=== PATIENT | male | born 1930 | race Caucasian/White ===

== ENCOUNTER 2016-06-03 09:17 | Emergency (ER) | payer MEDICARE, BC ==
[~2016-06-03] VITALS: Ht 185.4 cm; Wt 77.1 kg
[~2016-06-03 09:17] MED LIST: AMLO1CAP6 PO; ASCO500C16 PO; ASPI81TA44 PO; CARV6.252 PO; CLOP75TA2 PO; FISH1CAP16 PO; FURO-151 PO; LISI-603 PO; MULT-1119 PO; SIMV80TA5 PO; VITAMIN B-12; ZINC50TA4 PO; [UNRECOGNIZED DRUG - CODE] PO
[2016-06-03] MEDS ORDERED: NEOMY/BACITRA/POLYMYXIN B OINT UD PACKET TP ONE ×2 (09:45→09:58)
--- NOTE | 2016-06-03 09:46 | NUR ---
PT WAS EVALUATED BY DR MCMILLAN. PT's WOUND WAS CLEANED WITH NS. GAUZE DRESSING WAS APPLIED ACCORDING DR MCMILLAN ORDERS. PT WAS D/C TO HOME. D/C INSTRUCTIONS GIVEN TO THE PT.
[2016-06-03 09:52] VITALS: BP 129/81
== END 2016-06-03 09:52 | disposition home or self-care (01) ==
LOC: ER 09:17
DX: Z48.01 Encounter for change or removal of surgical wound dressing (principal); I10 Essential (primary) hypertension; I50.9 Heart failure, unspecified; F10.20 Alcohol dependence, uncomplicated; Z79.82 Long term (current) use of aspirin; Z95.1 Presence of aortocoronary bypass graft
CPT/HCPCS: 99283; A4217; A4663

== ENCOUNTER 2016-08-05 11:07 | Emergency (ER) | payer MEDICARE, BC ==
[~2016-08-05] VITALS: Ht 185.4 cm; Wt 74.8 kg
--- NOTE | 2016-08-05 11:12 | NUR ---
pt and walked into er co left mid foot skin sponataneosly opened and blood gushing out. pt wrapped the area and came to er. while wrapped, bleeding stopped but if removed, blood shoots out. pt also has achronic wound on the left foot which was wrapped by a wound nurse already. did not touch the dressing.
--- NOTE | 2016-08-05 11:53 | NUR ---
Patient discharged to home in stable conditon. Written and verbal after care instructions given. Patient verbalizes understanding of instructions.bleeding stopped. pt walks in steady gait accompanied by .
== END 2016-08-05 11:55 | disposition home or self-care (01) ==
LOC: ER 11:07
DX: Z48.01 Encounter for change or removal of surgical wound dressing (principal); M25.075 Hemarthrosis, left foot; F10.20 Alcohol dependence, uncomplicated; I10 Essential (primary) hypertension; I50.9 Heart failure, unspecified; I25.10 Atherosclerotic heart disease of native coronary artery without angina pectoris; Z79.82 Long term (current) use of aspirin
CPT/HCPCS: A4663

== ENCOUNTER 2016-08-06 22:01 | Inpatient (IN) | payer MEDICARE, BC ==
[~2016-08-06] VITALS: Ht 185.4 cm; Wt 72.2 kg
[~2016-08-06 22:01] MED LIST changes: +CHOL200010 PO; +CLOP75TA15 PO; -CLOP75TA2 PO; -[UNRECOGNIZED DRUG - CODE] PO
[2016-08-06 22:41] LABS: BASOPHILS # (AUTO) 0.2 K/uL (0.0-8.0); BASOPHILS % (AUTO) 1.5 % (0.0-2.0); EOSINOPHILS # (AUTO) 0.2 K/uL (0.0-0.7); EOSINOPHILS % (AUTO) 2.1 % (0.0-7.0); HEMOGLOBIN 7.1 G/DL (14.0-18.0); LYMPHOCYTES # (AUTO) 1.6 K/UL (0.8-4.8); MEAN CORPUSCULAR HEMOGLOBIN 29.2 UUG (27.0-31.0); MEAN CORPUSCULAR HGB CONC 33 g/dL (32.0-37.0); MEAN CORPUSCULAR VOLUME 87.6 FL (82.0-92.0); MONOCYTES % (AUTO) 9.1 % (0.0-11.0); NEUTROPHILS # (AUTO) 8.3 K/UL (1.8-8.9); NEUTROPHILS % (AUTO) 73.3 % (38.5-71.5); PLATELET COUNT (AUTO) 74 K/UL (150-450); WHITE BLOOD COUNT (AUTO) 11.3 K/UL (4.0-11.2)
[2016-08-06 22:43] LABS: HEMATOCRIT 21.4 % (40-50); RED BLOOD CELL COUNT(AUTO) 2.44 MIL/UL (4.7-6.1)
[2016-08-06] MEDS ORDERED: HYDROMORPHONE 1 MG/1 ML DISP.SYRIN IV ONE (22:45)
[2016-08-06] MEDS ORDERED: ONDANSETRON IV *ER 4 MG/2 ML VIAL IV ONE (22:45)
[2016-08-06] MEDS ORDERED: HYDROMORPHONE 1 MG/1 ML DISP.SYRIN ONE (22:48)
[2016-08-06] MEDS ORDERED: ONDANSETRON 4 MG/2 ML VIAL ONE (22:48)
[2016-08-06 23:06] LABS: ALANINE AMINOTRANSFERASE 15 U/L (16-63); ALKALINE PHOSPHATASE 76 U/L (50-136); ASPARTATE AMINOTRANSFERASE 15 U/L (15-37); BILIRUBIN,DIRECT 0.2 mg/dL (0.0-0.2); BILIRUBIN,TOTAL 0.6 mg/dL (0.2-1.0); CARBON DIOXIDE 25 mmol/L (21-32); CHLORIDE 106 mmol/L (98-107); CREATININE 2.6 mg/dL (0.6-1.3); GLUCOSE 172 mg/dL (74-106); LIPASE 161 U/L (73-393); POTASSIUM 4.9 mmol/L (3.5-5.1); TOTAL PROTEIN, SERUM 6.6 g/dL (6.4-8.2); UREA NITROGEN, BLOOD 79 mg/dL (7-18)
[2016-08-06] MEDS ORDERED: IV NORMAL SALINE 1000 ML BAG IV ONE (23:45)
[2016-08-07] VITALS (14 sets, daily range): BP systolic 117–161; BP diastolic 46–74
[2016-08-07 00:33] LABS: LYMPHOCYTES % (MANUAL) 21 % (20-40); MONOCYTES % (MANUAL) 6 % (2-10); NEUTROPHILS % (MANUAL) 73 % (42-75)
--- NOTE | 2016-08-07 01:30 | NUR ---
RECEIVED ADMISSION REPORT FROM ELKE HOLLIS
--- NOTE | 2016-08-07 02:00 | NUR ---
ADMITTED PATIENT FROM ER VIA [facility]. AAO X 4, VERY COHERENT AND TALKATIVE. ROUTINE ADMISSION CARE DONE. PLAN OF CARE INITIATED.
--- NOTE | 2016-08-07 02:11 | NUR ---
Pt. admitted to TELE, under care of Dr. Celeste Belongs List completed
--- NOTE | 2016-08-07 03:00 | NUR ---
BLOOD TRANSFUSION INITIATED ORDERED. VS TAKEN AND RECORDED.
--- NOTE | 2016-08-07 03:15 | NUR ---
NO S/S OF ADVERSE REACTION NOTED FROM BLOOD TRANSFUSION. CONTINUE TO MONITOR.
--- NOTE | 2016-08-07 05:15 | NUR ---
First unit PRBC transfusion completed without s/s of adverse reaction noted. Pt tolerated procedure well.
--- NOTE | 2016-08-07 05:31 | NUR ---
2nd unit PRBC started. VS taken and recorded. Will monitor.
--- NOTE | 2016-08-07 05:58 | NUR ---
Last unit PRBC transfusing. Patient tolerated procedure. No s/s of adverse reaction noted. All needs attended and met. Safety measures and fall precaution maintained. No significant event reported all night. Continue care as planned.
[2016-08-07 07:24] LABS: CARBON DIOXIDE 20 mmol/L (21-32); CREATININE 2.2 mg/dL (0.6-1.3); GLUCOSE 121 mg/dL (74-106); UREA NITROGEN, BLOOD 74 mg/dL (7-18)
[2016-08-07 07:28] LABS: CHLORIDE 111 mmol/L (98-107)
--- NOTE | 2016-08-07 07:30 | NUR ---
AWAKE ALERT COOPERATE WELL NO SOB OR PAIN CONTINUE PRBC SELINA WELL NO REACTION VS TAKEN STABLE RESTING WITH CALL COSTA IN REACH
[2016-08-07 07:37] LABS: POTASSIUM 5.6 mmol/L (3.5-5.1)
[2016-08-07] MEDS: IV D5/ 0.9% NACL 1,000 ML IV PRN ×2 (08:07→18:34)
--- NOTE | 2016-08-07 08:10 | NUR ---
SECOND UNIT OF PRBC COMPLETE VS STABLE EAT BREAKFAST SMALL AMT STATE DOES NOT HUNGRY CLOSED OBSERVATION
--- NOTE | 2016-08-07 09:00 | NUR ---
DR LION WAS REMIND ON HOME MEDICINE NEED TO REVIEW AND ORDER , WAS AWARE AND PHABRO WAS INFORM BECAUSE OF NO RECORD FROM ER AND WILL ASK FAMILY TODAY
[2016-08-07 09:17] LABS: BASOPHILS % (AUTO) 0.1 % (0.0-2.0); EOSINOPHILS # (AUTO) 0.4 K/uL (0.0-0.7); EOSINOPHILS % (AUTO) 1.6 % (0.0-7.0); LYMPHOCYTES # (AUTO) 1.4 K/UL (0.8-4.8); LYMPHOCYTES % (AUTO) 5.3 % (20.5-51.5); MEAN CORPUSCULAR HEMOGLOBIN 28.3 UUG (27.0-31.0); MEAN CORPUSCULAR HGB CONC 32 g/dL (32.0-37.0); MEAN CORPUSCULAR VOLUME 88.1 FL (82.0-92.0); MONOCYTES # (AUTO) 2.2 K/UL (0.1-1.30); MONOCYTES % (AUTO) 8.4 % (0.0-11.0); NEUTROPHILS # (AUTO) 21.9 K/UL (1.8-8.9); NEUTROPHILS % (AUTO) 84.6 % (38.5-71.5)
[2016-08-07 09:20] LABS: RED BLOOD CELL COUNT(AUTO) 2.91 MIL/UL (4.7-6.1); WHITE BLOOD COUNT (AUTO) 25.9 K/UL (4.0-11.2)
[2016-08-07 09:21] LABS: HEMATOCRIT 25.7 % (40-50); HEMOGLOBIN 8.3 G/DL (14.0-18.0); PLATELET COUNT (AUTO) 52 K/UL (150-450)
[2016-08-07 09:36] LABS: *BILIRUBIN,URIN NEGATIVE (NEGATIVE); *BLOOD, URINE Trace-lysed (NEGATIVE); *CLARITY,URINE SLIGHTLY CLOUDY (CLEAR); *COLOR,URINE LIGHT YELLOW (YELLOW); *KETONES,URINE NEGATIVE (NEGATIVE); *PROTEIN,URINE TRACE (NEGATIVE); *UROBILINOGEN,URINE 0.2 E.U./dl (NORMAL); LEUKOCYTE ESTERASE ,URINE NEGATIVE (NEGATIVE); NITRITE, URINE NEGATIVE (NEGATIVE); UGLUCOSE NEGATIVE (NEGATIVE)
[2016-08-07 09:45] LABS: LYMPHOCYTES % (MANUAL) 6 % (20-40); MONOCYTES % (MANUAL) 6 % (2-10); NEUTROPHILS % (MANUAL) 88 % (42-75)
[2016-08-07 09:46] LABS: *CREATININE,URINE 40.2 mg/dL (30-125); *URINE TOTAL PROTEIN RANDOM 15.9 mg/dL (<150/24HR)
[2016-08-07 09:51] LABS: BACTERIA,URINE FEW /HPF (NONE SEEN); RBC,URINE NONE SEEN /HPF (0-3); SQUAMOUS EPITHELIAL CELL,UR FEW /HPF (NONE SEEN); WBC,URINE 0-3 /HPF (0-3)
--- NOTE | 2016-08-07 10:00 | NUR ---
DR LION SEE PATIENT AND LAB RESULT TODAY AND NEW ORDER IN CHART BLOOD CULTURE AND URINE C$S,UA SENT STAT ORDER
--- NOTE | 2016-08-07 11:00 | NUR ---
US OF KIDNEY DONE TODAY SELINA PROCEDURE WELL NO SOB OR PAIN VS STABLE NO FEVER
--- NOTE | 2016-08-07 11:00 | NUR ---
ASSIST TO BR[facility] VOIDING WELL ,STILL VERY WEAK ON FALL /ASPIRATION PRECAUTION BED ALARM ON AND CALL COSTA IN REACH
[2016-08-07 12:26] LABS: CARBON DIOXIDE 24 mmol/L (21-32); CHLORIDE 112 mmol/L (98-107); CREATININE 2.1 mg/dL (0.6-1.3); GLUCOSE 124 mg/dL (74-106); POTASSIUM 5.4 mmol/L (3.5-5.1); UREA NITROGEN, BLOOD 67 mg/dL (7-18)
--- NOTE | 2016-08-07 13:30 | NUR ---
EAT LUNCH SMALL AMT PO FLD ENC SELINA WELL CLOSE OBSERVATION
--- NOTE | 2016-08-07 16:00 | NUR ---
TEMP WAS 99.7 AND BP HIGHER 150/49 PATIENT WAS ANXIUOS AND FORGETFUL AT THIS TIME STATE WANT TO GO TO [facility] ASSIST TO USE BEDPAN AND HE HAVE A LARGE BM STOOL SENT TO LAB TODAY
--- NOTE | 2016-08-07 16:30 | NUR ---
DR LION WAS CALL REGARDING NEED REVIEW HOME MEDICINE AND LAB RESULT WBC WAS 25.9 ,K+5.4 REPEAT LAB TODAY AND MESSAGE LEFT
--- NOTE | 2016-08-07 18:00 | NUR ---
DR OLMOS WAS CALL REGARDING DR LION DOES NOT RETURN CALL PATIENT TEMP AND LAB RESULT OF WBC AND K+ BUN/CREAT INFORM AND NEW ORDER IN CHART STATE HOME MEDICINE LET DR LION REVIEW TOMORROW EXCEPT COREG OK TO CONTINUE BID
--- NOTE | 2016-08-07 18:00 | NUR ---
DR GIVENS WAS HERE SEE PATIENT AND NEW ORDER FOR MEDICINE IN CHART
--- NOTE | 2016-08-07 18:45 | NUR ---
DR SIMON SEE PATIENT AND WOUND CARE DSG CHANGE BY AND NEW ORDER FOR VANCOMYCIN IN CHART WOUND CULTURE SENT TO LAB THIS PM
--- NOTE | 2016-08-07 19:30 | NUR ---
patient got confused,restless,attempt getting out of bed,transfer patient to room 210 for closely monitor.
[2016-08-07] MEDS ORDERED: PIPERACILLIN/TAZOBACTAM/D5W 3.375 G in PREMIXED 1 EACH IV SCH (19:45)
[2016-08-07] MEDS ORDERED: VANCOMYCIN IV 1 G in PREMIXED 0 EACH IV SCH (20:00)
[2016-08-07] MEDS: PIPERACILLIN/TAZOBACTAM/D5W 2.25 G in PREMIXED 1 EACH IV SCH (20:47)
[2016-08-07] MEDS: LORAZEPAM 0.5 MG TABLET PO PRN (21:24)
[2016-08-07] MEDS: ATORVASTATIN 40 MG TABLET PO SCH (21:25)
--- NOTE | 2016-08-07 21:25 | NUR ---
patient try to get out of bed,very confused,restless Ativan 0.5 mg po admin for agitation,continue closely monitor.
[2016-08-07] MEDS ORDERED: FUROSEMIDE 40 MG/4 ML VIAL IV ONE (21:30)
--- NOTE | 2016-08-07 21:30 | NUR ---
patient wheezes,sob noted,increase o2 to 5l/n via nasal cannula, Dr. Rodriguez was notified ,Lasix 40 mg iv admin.
[2016-08-07] MEDS ORDERED: FUROSEMIDE 40 MG/4 ML VIAL ONE (21:32)
[2016-08-07 21:41] LABS: *OCCULT BLOOD STOOL NEGATIVE (NEGATIVE)
[2016-08-07] MEDS ORDERED: CARVEDILOL 6.25 MG TABLET PO SCH (22:15)
[2016-08-07] MEDS ORDERED: CARVEDILOL 6.25 MG TABLET ONE (22:24)
--- NOTE | 2016-08-07 22:30 | NUR ---
patient o2 saturate down to 88% on o2 6 l/m via nasal cannula, increase o2 to 15 l/m via NRB mask o2 sat up to 99%-100%
[2016-08-07] MEDS ORDERED: VANCOMYCIN IV 200 ML ONE (22:52)
--- NOTE | 2016-08-07 23:30 | NUR ---
RECEIVED PT. FROM RM 209 VIA BED, DUE SEVERE RESTLESSNESS. CHECKED TEMP-103.8 RECTALLY, TYLENOL 650MG GIVEN CRUSHED W/ APPLE. COOLING MEASURES APPLIED & COOL BATH GIVEN. IVF D5NS @ 85CC/HR ON RFA, IVPB MED INFUSING THIS TIME. REPOSITIONED ON HIS SIDE W/ HOB ELEVATED. ON O2 OF 100% NRM W/ O2 SAT OF 100%. INSERTED RESENDIZ #16, DONE ASEPTICALLY W/ PINKISH CLEAR URINE. SENT URINE SPEC. TO LAB. FOR C&S. WATCHED PT CLOSELY.
--- NOTE | 2016-08-07 23:40 | NUR ---
bladder scan done shown 225 ml of urine ,bp 136/72,Dr. Rodriguez was notified ,ok to placed sparrow catheter and move patient to CCU for higher level of care.CXR stat ordered.
[2016-08-07] MEDS: ACETAMINOPHEN 325 MG TABLET PO PRN (23:58)
[2016-08-08] VITALS (58 sets, daily range): BP systolic 77–153; BP diastolic 33–75
[2016-08-08 00:25] LABS: HEMATOCRIT 27.5 % (40-50)
[2016-08-08] MEDS: PIPERACILLIN/TAZOBACTAM/D5W 2.25 G in PREMIXED 1 EACH IV SCH ×3 (01:41→14:49)
--- NOTE | 2016-08-08 02:00 | NUR ---
NOTIFIED DR URIAS FOR LOW BP-80/43 W/ ORDERS. ALSO WAS UPDATED OF ELEVATED TEMP.
[2016-08-08] MEDS ORDERED: NOREPINEPHRINE BITARTRATE 8 MG in IV DEXTROSE 5% 500 ML IV PRN (02:15)
--- NOTE | 2016-08-08 02:27 | NUR ---
STARTED ON LEVOPHED DRIP @ 5MCQ/MIN ON RFA. STARTED #2 IV SITE ON L HAND W/ #22 ANGIO. FOR MAIN IVF.
[2016-08-08] MEDS ORDERED: NOREPINEPHRINE BITARTRATE 4 MG/4 ML VIAL IV ONE (02:28)
--- NOTE | 2016-08-08 04:00 | NUR ---
AM CARE DONE. ORAL CARE DONE. REPOSITIONED W/ HOB ELEVATED.
[2016-08-08 05:27] LABS: BASOPHILS % (AUTO) 0.2 % (0.0-2.0); EOSINOPHILS # (AUTO) 0.4 K/uL (0.0-0.7); EOSINOPHILS % (AUTO) 1.5 % (0.0-7.0); HEMATOCRIT 24.7 % (40-50); HEMOGLOBIN 8.2 G/DL (14.0-18.0); LYMPHOCYTES # (AUTO) 1.5 K/UL (0.8-4.8); LYMPHOCYTES % (AUTO) 6.2 % (20.5-51.5); MEAN CORPUSCULAR HEMOGLOBIN 28.7 UUG (27.0-31.0); MEAN CORPUSCULAR HGB CONC 33 g/dL (32.0-37.0); MEAN CORPUSCULAR VOLUME 86.9 FL (82.0-92.0); MONOCYTES # (AUTO) 2.8 K/UL (0.1-1.30); MONOCYTES % (AUTO) 11.7 % (0.0-11.0); NEUTROPHILS % (AUTO) 80.4 % (38.5-71.5); PLATELET COUNT (AUTO) 55 K/UL (150-450); RED BLOOD CELL COUNT(AUTO) 2.85 MIL/UL (4.7-6.1)
[2016-08-08] MEDS: ACETAMINOPHEN 325 MG TABLET PO PRN (05:31)
[2016-08-08 05:40] LABS: WHITE BLOOD COUNT (AUTO) 23.7 K/UL (4.0-11.2)
[2016-08-08 05:42] LABS: ALANINE AMINOTRANSFERASE 20 U/L (16-63); ALKALINE PHOSPHATASE 63 U/L (50-136); ASPARTATE AMINOTRANSFERASE 34 U/L (15-37); BILIRUBIN,TOTAL 0.9 mg/dL (0.2-1.0); CARBON DIOXIDE 25 mmol/L (21-32); CHLORIDE 109 mmol/L (98-107); CREATININE 2.1 mg/dL (0.6-1.3); GLUCOSE 174 mg/dL (74-106); MAGNESIUM 2.2 mg/dL (1.8-2.4); PHOSPHOROUS 4.6 mg/dL (2.5-4.9); POTASSIUM 4.7 mmol/L (3.5-5.1); TOTAL PROTEIN, SERUM 6.4 g/dL (6.4-8.2); UREA NITROGEN, BLOOD 57 mg/dL (7-18)
[2016-08-08 05:43] LABS: BAND % (MANUAL) 2 % (0-10); EOSINOPHILS % (MANUAL) 1 % (0-8); LYMPHOCYTES % (MANUAL) 15 % (20-40); MONOCYTES % (MANUAL) 7 % (2-10); NEUTROPHILS % (MANUAL) 75 % (42-75)
--- NOTE | 2016-08-08 05:45 | NUR ---
LOKESH HAHN CALLED TO OBTAIN CONSENT FO PICC LINE INSERTION.
[2016-08-08 05:57] LABS: CREATINE KINASE, TOTAL 434 U/L (39-308)
--- NOTE | 2016-08-08 06:00 | NUR ---
INCREASED LEVOPHED DRIP TO 12MCQ/MIN, BP-82/38. PT. IS QUITE THIS TIME. TRIED O2 4LNC , PT DESATURATED , PLACED BACK TO 100% NRM.
--- NOTE | 2016-08-08 07:30 | NUR ---
RECEIVED PT TIN NAD VSS ON VASOPRESSOR SUPPORT. PT IS A/OX1; CONFUSED AND LETHARGIC. PT ON CARDIAC MONITORING SHOWING BRADYCARDIA WITH OCCASIONAL PVC. PT HAS NRB MASK AT 15LPM; SPO2 IS 100%. PT HAS A LEFT HAND AND RT FOREARM IV INFUSING FLUIDS AT THIS TIME. PT HAS A FC DRAINING CLEAR KYLE URINE. SCD ON RT LEG ONLY PER LLE WOUND AND DRESSING. SEE NURSING FLOWSHEET FOR FURTHER DETAILS. WILL ORDER A KCI MATTRESS. PT DENIES PAIN AT THIS TIME
[2016-08-08] MEDS ORDERED: CARVEDILOL 6.25 MG TABLET PO SCH (08:00)
--- NOTE | 2016-08-08 08:45 | NUR ---
TURNED OFF LEVOPHED GTT; VSS
--- NOTE | 2016-08-08 08:58 | NUR ---
PLACED PT ON NC AT 5LPM; PT WAS ON 10 LPM SM. WITH SPO2 OF 99%; DENIES SOB
[2016-08-08] MEDS: FLUCONAZOLE 200 MG TABLET PO SCH (09:00)
--- NOTE | 2016-08-08 09:15 | NUR ---
PT STARTED ON 5MCG/KG/MIN LEVOPHED FOR SBP<90.
--- NOTE | 2016-08-08 10:48 | NUR ---
COLLAR SETTER OVERLOCK LEFT CALF WOUND TREATMENT ORDERS CLARIFIED WITH DR ULLOA AND DISCUSSED WITH CCU RN.
--- NOTE | 2016-08-08 10:56 | NUR ---
PHARMACY CLINICAL NOTE: Subjective: 85 yo male with dx of sepsis of unknown origin. Currently on Zosyn. wanted to add vancomycin as well. Objectives: BUN/SCR 57/2.1, WBC 23.7, TMAX = 101.4, CRCL 26.38, DOSING WT 157 LBS Assessment /plan: Patient received Vancomycin 1 gm @ 2300 on 08/07/2016. Will continue vancomycin @ 1250 mg IVPB q36h,first dose today @ 1200, estimated peak of 40.6 and trough 16.34 will order a trough prior to 4th dose and adjust the dose if necessary.
[2016-08-08] MEDS ORDERED: VANCOMYCIN IV 1,250 MG in IV DEXTROSE 5% 500 ML IV SCH (12:00)
[2016-08-08] MEDS ORDERED: IV NS 1000 ML 1,000 ML IV ONE (12:15)
[2016-08-08 13:06] LABS: BASOPHILS % (AUTO) 0.2 % (0.0-2.0); EOSINOPHILS # (AUTO) 0.1 K/uL (0.0-0.7); EOSINOPHILS % (AUTO) 0.5 % (0.0-7.0); LYMPHOCYTES # (AUTO) 1.4 K/UL (0.8-4.8); LYMPHOCYTES % (AUTO) 8.7 % (20.5-51.5); MEAN CORPUSCULAR HEMOGLOBIN 28.5 UUG (27.0-31.0); MEAN CORPUSCULAR HGB CONC 33 g/dL (32.0-37.0); MEAN CORPUSCULAR VOLUME 87.6 FL (82.0-92.0); MONOCYTES # (AUTO) 2.1 K/UL (0.1-1.30); NEUTROPHILS # (AUTO) 12.2 K/UL (1.8-8.9); NEUTROPHILS % (AUTO) 77.6 % (38.5-71.5); RED BLOOD CELL COUNT(AUTO) 2.59 MIL/UL (4.7-6.1); WHITE BLOOD COUNT (AUTO) 15.8 K/UL (4.0-11.2)
[2016-08-08] MEDS ORDERED: ASCO500C16 PO (13:07)
[2016-08-08] MEDS ORDERED: AMLO1CAP6 PO (13:07)
[2016-08-08] MEDS ORDERED: ASPI81TA44 PO (13:07)
[2016-08-08 13:08] LABS: IRON, SERUM 13 ug/dL (50-175)
[2016-08-08] MEDS ORDERED: CHOL200010 PO (13:12)
[2016-08-08] MEDS ORDERED: CARV6.252 PO (13:12)
[2016-08-08] MEDS ORDERED: SIMV80TA5 PO (13:12)
[2016-08-08] MEDS ORDERED: CLOP75TA15 PO (13:12)
[2016-08-08] MEDS ORDERED: LISI-603 PO (13:12)
[2016-08-08] MEDS ORDERED: FISH1CAP16 PO (13:12)
[2016-08-08] MEDS ORDERED: MULT-1119 PO (13:12)
[2016-08-08] MEDS ORDERED: FURO-151 PO (13:18)
[2016-08-08 13:39] LABS: FERRITIN 730 ng/mL (26-388)
--- NOTE | 2016-08-08 13:41 | NUR ---
WOUND CARE CONSULT: PT NOT SEEN YET FOR SKIN ASSESSMENT DUE TO PT HAVING PROCEDURE AT THIS TIME. DISCUSSED SKIN PROTECTION WITH NURSING STAFF. PT FOLLOWED BY DR ULLOA FOR LOWER EXTREMITY WOUND. MD IN AGREEMENT WITH PLAN OF CARE.
[2016-08-08 14:04] LABS: PLATELET COUNT (AUTO) 43 K/UL (150-450)
[2016-08-08 14:07] LABS: HEMATOCRIT 22.7 % (40-50); HEMOGLOBIN 7.4 G/DL (14.0-18.0)
[2016-08-08] MEDS ORDERED: CYAN10009 PO (14:09)
[2016-08-08] MEDS ORDERED: IV NORMAL SALINE 500 ML BAG IV ONE (15:00)
[2016-08-08] MEDS ORDERED: NS IV ONE (15:15)
--- NOTE | 2016-08-08 15:45 | NUR ---
COMPLETED SEPSIS PROTOCOL INFUSION OF 2400ML NS; PT TOLERATED WELL. BEGINNING INFUSION OF 1 UNIT PRBC'S
--- NOTE | 2016-08-08 18:00 | NUR ---
Pt tolerated 1unit prbc transfusion well; no reactions noted
[2016-08-08 18:22] LABS: BAND % (MANUAL) 2 % (0-10); LYMPHOCYTES % (MANUAL) 8 % (20-40); MONOCYTES % (MANUAL) 15 % (2-10); NEUTROPHILS % (MANUAL) 75 % (42-75)
[2016-08-08] MEDS ORDERED: MEROPENEM 500 MG in IV NORMAL SALINE 50 ML IV SCH (19:00)
[2016-08-08 19:24] LABS: BASOPHILS % (AUTO) 0.3 % (0.0-2.0); EOSINOPHILS # (AUTO) 0.3 K/uL (0.0-0.7); EOSINOPHILS % (AUTO) 2.1 % (0.0-7.0); HEMATOCRIT 24.3 % (40-50); LYMPHOCYTES # (AUTO) 1.5 K/UL (0.8-4.8); LYMPHOCYTES % (AUTO) 9.3 % (20.5-51.5); MEAN CORPUSCULAR HEMOGLOBIN 27.9 UUG (27.0-31.0); MEAN CORPUSCULAR HGB CONC 33 g/dL (32.0-37.0); MEAN CORPUSCULAR VOLUME 84.7 FL (82.0-92.0); MONOCYTES # (AUTO) 2.2 K/UL (0.1-1.30); MONOCYTES % (AUTO) 13.6 % (0.0-11.0); NEUTROPHILS # (AUTO) 12.1 K/UL (1.8-8.9); NEUTROPHILS % (AUTO) 74.7 % (38.5-71.5); RED BLOOD CELL COUNT(AUTO) 2.86 MIL/UL (4.7-6.1); WHITE BLOOD COUNT (AUTO) 16.1 K/UL (4.0-11.2)
[2016-08-08 19:28] LABS: PLATELET COUNT (AUTO) 46 K/UL (150-450)
[2016-08-08] MEDS ORDERED: PIPERACILLIN/TAZOBACTAM/D5W 2.25 G in PREMIXED 1 EACH IV SCH (20:00)
--- NOTE | 2016-08-08 20:00 | NUR ---
Pt confused and restless. States has a wedding to go to. Frequent reality-orientation done. Safety and fall precautions observed at all times. Remains off Levophed and is closely monitored. Resp. easy and regular. O2 titrating. PICC line intact RUE, kept secure with kerlix wrap. Frequently instructed to remain in bed. Please see CCU flowsheet for full assessment and clinical data.
[2016-08-08] MEDS ORDERED: IV NORMAL SALINE 250 ML BAG IV SCH (20:15)
[2016-08-08] MEDS ORDERED: IV NORMAL SALINE 250 ML IV PRN ×2 (20:30)
[2016-08-08] MEDS: ATORVASTATIN 40 MG TABLET PO SCH (20:39)
[2016-08-08] MEDS: LORAZEPAM 0.5 MG TABLET PO PRN (20:39)
[2016-08-08] MEDS: Z GUARD REMEDY PASTE 57 GM TUBE TOP PRN (20:41)
[2016-08-08] MEDS ORDERED: SIMVASTATIN 40 MG TABLET PO SCH (21:00)
[2016-08-09] VITALS (9 sets, daily range): BP systolic 107–156; BP diastolic 62–81
--- NOTE | 2016-08-09 01:15 | NUR ---
Pt getting extremely hard to manage to keep safe. Very restless/agitated, trying to get out of bed numerous times, pulling med equipments. Appears SOB with exertion, pt very strong. Dr. Ritchie notified and received order for IV PRN Ativan and bilateral mittens, carried out. Close monitoring continues.
[2016-08-09] MEDS ORDERED: LORAZEPAM 2 MG/1 ML VIAL ONE ×2 (01:17→06:56)
[2016-08-09] MEDS: LORAZEPAM 2 MG/1 ML VIAL IV PRN ×2 (01:19→06:48)
--- NOTE | 2016-08-09 02:00 | NUR ---
Routine weekly photo not taken on left leg wound due to presence of pressure dressing. Per MD, dressing change is daily and only he can remove steri-strips. Wound care/dressing was done by day shift and will endorse Tx/photo. Wound has tendency to bleed.
[2016-08-09 05:14] LABS: EOSINOPHILS # (AUTO) 0.3 K/uL (0.0-0.7); EOSINOPHILS % (AUTO) 1.6 % (0.0-7.0); HEMATOCRIT 26.4 % (40-50); HEMOGLOBIN 8.7 G/DL (14.0-18.0); LYMPHOCYTES # (AUTO) 1.2 K/UL (0.8-4.8); LYMPHOCYTES % (AUTO) 5.7 % (20.5-51.5); MEAN CORPUSCULAR HEMOGLOBIN 28.4 UUG (27.0-31.0); MEAN CORPUSCULAR HGB CONC 33 g/dL (32.0-37.0); MEAN CORPUSCULAR VOLUME 86.2 FL (82.0-92.0); MONOCYTES # (AUTO) 2.6 K/UL (0.1-1.30); MONOCYTES % (AUTO) 11.8 % (0.0-11.0); NEUTROPHILS # (AUTO) 17.6 K/UL (1.8-8.9); NEUTROPHILS % (AUTO) 80.9 % (38.5-71.5); RED BLOOD CELL COUNT(AUTO) 3.06 MIL/UL (4.7-6.1); WHITE BLOOD COUNT (AUTO) 21.7 K/UL (4.0-11.2)
[2016-08-09 05:26] LABS: ALANINE AMINOTRANSFERASE 21 U/L (16-63); ALKALINE PHOSPHATASE 58 U/L (50-136); ASPARTATE AMINOTRANSFERASE 41 U/L (15-37); BILIRUBIN,TOTAL 1.1 mg/dL (0.2-1.0); CARBON DIOXIDE 25 mmol/L (21-32); CHLORIDE 112 mmol/L (98-107); CREATININE 1.6 mg/dL (0.6-1.3); GLUCOSE 123 mg/dL (74-106); MAGNESIUM 1.9 mg/dL (1.8-2.4); PHOSPHOROUS 3.8 mg/dL (2.5-4.9); POTASSIUM 4.4 mmol/L (3.5-5.1); TOTAL PROTEIN, SERUM 6.4 g/dL (6.4-8.2); UREA NITROGEN, BLOOD 41 mg/dL (7-18)
[2016-08-09 05:34] LABS: PLATELET COUNT (AUTO) 44 K/UL (150-450)
[2016-08-09 05:39] LABS: BAND % (MANUAL) 2 % (0-10); EOSINOPHILS % (MANUAL) 3 % (0-8); LYMPHOCYTES % (MANUAL) 9 % (20-40); MONOCYTES % (MANUAL) 14 % (2-10); NEUTROPHILS % (MANUAL) 72 % (42-75)
[2016-08-09] MEDS: Z GUARD REMEDY PASTE 57 GM TUBE TOP PRN (06:30)
--- NOTE | 2016-08-09 06:50 | NUR ---
Med override 2 doses IV Ativan this shift. See EMar.
[2016-08-09] MEDS: ASCORBIC ACID 500 MG TABLET PO SCH (08:36)
[2016-08-09] MEDS: FLUCONAZOLE 200 MG TABLET PO SCH (08:36)
[2016-08-09] MEDS: CYANOCOBALAMIN 1,000 MCG TABLET PO SCH (08:36)
[2016-08-09] MEDS: MULTIVITAMINS,THERAPEUTIC TABLET PO SCH (08:36)
[2016-08-09] MEDS: OMEGA-3 FATTY ACIDS/FISH OIL CAPSULE PO SCH (08:36)
[2016-08-09] MEDS: CHOLECALCIFEROL 1,000 UNIT TABLET PO SCH (08:37)
[2016-08-09] MEDS ORDERED: MEROPENEM 500 MG in IV NORMAL SALINE 50 ML IV SCH (09:00)
--- NOTE | 2016-08-09 11:20 | NUR ---
SBAR REPORTED TO ADELINE. PENDING PATIENT TRANSFER TO TELE, WAITING FOR 1:1 SITTER.
[2016-08-09 12:10] LABS: A/G RATIO 1.3 (0.7-1.7); ALBUMIN 3.3 g/dL (2.9-4.4); ALPHA-1-GLOBULIN 0.3 g/dL (0.0-0.4); ALPHA-2-GLOBULIN 0.7 g/dL (0.4-1.0); BETA GLOBULIN 0.7 g/dL (0.7-1.3); GAMMA GLOBULIN 0.9 g/dL (0.4-1.8); GLOBULIN, TOTAL 2.6 g/dL (2.2-3.9); M-SPIKE Not Observed g/dL (Not Observed)
--- NOTE | 2016-08-09 15:00 | NUR ---
PLACED ORDER FOR SWALLOW EVAL. PATIENT IS SITTING UP HIGH PATIENT IS UNABLE TO SIP WATER. PATIENT IS COUGHING WITH SIPPS OF WATER. CRUSHED MEDS TO SWALLOW.
--- NOTE | 2016-08-09 15:30 | NUR ---
BED AVAILABLE TO ROOM 226.
--- NOTE | 2016-08-09 15:41 | NUR ---
PHARMACY CLINICAL NOTE - Vancomycin pharmacy to dose Subjective: 85 yo male with dx of sepsis of unknown origin. Currently on Zosyn. MD wanted to add vancomycin as well. Objectives: BUN/SCR 41/1.6, WBC 21.7, TMAX = 98.6, DOSING WT 157 LBS Assessment /plan: Since renal function has improved, rescheduled vanco 1250mg from q36hr to q30hr, with second dose of regimen due today at 1800. Expected estimated trough to be around 15.32. Will order trough before 4th scheduled dose (not ordered yet) and adjust as accordingly. Will continue to monitor renal function and adjust regimen as needed. Will continue to monitor
[2016-08-09] MEDS ORDERED: hydrALAZINE HCL 25 MG TABLET PO PRN (16:15)
--- NOTE | 2016-08-09 16:17 | NUR ---
PATIENT TRANSFERRED AT THIS TIME TO ROOM 226 WITH 1:1 SITTER.
[2016-08-09] MEDS ORDERED: VANCOMYCIN IV 1,250 MG in IV DEXTROSE 5% 500 ML IV SCH (18:00)
[2016-08-09] MEDS: RIFAMPIN 300 MG CAPSULE PO SCH (19:03)
--- NOTE | 2016-08-09 19:30 | NUR ---
PATIENT IN BED, ON CONTACT ISOLATION FOR MRSA OF THE BLOOD, CONT ON 1;1 SITTER FOR SAFETY, RESENDIZ CATH PATENT, DRAINING WITH YELLOW KYLE COLOR URINE IN MODERATE AMOUNT, NO COMPLAIN OF PAIN, NO SOB NO CHEST PAIN, ON OXYGEN 4LNC FOR SOB, ON AIR MATTRESS FOR PREVENTION OF PRESSURE ULCERS. NO S/S OF DISTRESS.
[2016-08-09] MEDS: ATORVASTATIN 40 MG TABLET PO SCH (20:39)
[2016-08-09] MEDS: LACTOBACILLUS RHAMNOSUS GG 1 EACH CAPSULE PO SCH (20:39)
[2016-08-09] MEDS: ZOLPIDEM 5 MG TABLET PO PRN (21:54)
[2016-08-09] MEDS: MUPIROCIN 2% OINT 22 GM TUBE NS SCH (21:58)
[2016-08-09] MEDS: LORAZEPAM 0.5 MG TABLET PO PRN (23:04)
[2016-08-10 03:16] VITALS: BP 142/60
[2016-08-10 03:18] VITALS: BP 138/61
[2016-08-10 03:30] VITALS: BP 145/61
--- NOTE | 2016-08-10 06:33 | NUR ---
PATIENT AWAKE, VERBALLY RESPONSIVE NO SOB NO CHEST PAIN, RYTHM SINUS RYTHM WITH PVC WITH BUNDLE BLOCK, KEPT CLEAN DRY AND COMFORTABLE, CONT ON 1;1 SITTER, REMAIN ON CONTACT ISOLATION.
[2016-08-10 07:08] LABS: BASOPHILS % (AUTO) 0.1 % (0.0-2.0); EOSINOPHILS # (AUTO) 0.5 K/uL (0.0-0.7); EOSINOPHILS % (AUTO) 3.4 % (0.0-7.0); LYMPHOCYTES # (AUTO) 1.3 K/UL (0.8-4.8); LYMPHOCYTES % (AUTO) 9.8 % (20.5-51.5); MEAN CORPUSCULAR HGB CONC 34 g/dL (32.0-37.0); MEAN CORPUSCULAR VOLUME 86.7 FL (82.0-92.0); MONOCYTES # (AUTO) 1.9 K/UL (0.1-1.30); MONOCYTES % (AUTO) 13.6 % (0.0-11.0); NEUTROPHILS % (AUTO) 73.1 % (38.5-71.5); WHITE BLOOD COUNT (AUTO) 13.7 K/UL (4.0-11.2)
--- NOTE | 2016-08-10 07:10 | NUR ---
PATIENT RECEIVED IN ROOM RESTING WITH EYES CLOSED IN NO ACUTE DISTRESS. H.R. 107 ON PEDIATRIC PHYSIATRIST. PATIENT ON C-PAP AT THIS TIME. AT BEDSIDE. Addendum: 08/10/16 at 0801 by ADELINE PABON RN WRONG ENTRY PATIENT JODEE RECEIVED IN ROOM ALERT AWAKE IN NO ACUTE DISTRESS. PATIENT CALM AND COOPERATIVE AT THIS TIME. H.R 77 ON PEDIATRIC PHYSIATRIST. RESPIRATIONS EVEN AND UNLABORED. OXYGEN ON 4L/NC. RESENDIZ CATH IN PLACE WITH URINE YELLOW AND CLEAR. PICC LINE INTACT AND PATENT. CONTINUES ON 1:1 SITTER AT BEDSIDE FOR SAFETY. IN CONTACT ISOLATION.
[2016-08-10 07:22] LABS: ALANINE AMINOTRANSFERASE 14 U/L (16-63); ALKALINE PHOSPHATASE 55 U/L (50-136); ASPARTATE AMINOTRANSFERASE 30 U/L (15-37); BILIRUBIN,TOTAL 2.3 mg/dL (0.2-1.0); CARBON DIOXIDE 27 mmol/L (21-32); CHLORIDE 115 mmol/L (98-107); CREATININE 1.3 mg/dL (0.6-1.3); GLUCOSE 94 mg/dL (74-106); MAGNESIUM 1.9 mg/dL (1.8-2.4); PHOSPHOROUS 2.8 mg/dL (2.5-4.9); TOTAL PROTEIN, SERUM 5.6 g/dL (6.4-8.2); UREA NITROGEN, BLOOD 35 mg/dL (7-18)
[2016-08-10 07:41] LABS: HEMATOCRIT 23.4 % (40-50); HEMOGLOBIN 7.8 G/DL (14.0-18.0); PLATELET COUNT (AUTO) 40 K/UL (150-450)
--- NOTE | 2016-08-10 07:53 | NUR ---
PATIENT SEEN BY DR. LION.
[2016-08-10] MEDS: FLUCONAZOLE 200 MG TABLET PO SCH (08:32)
[2016-08-10] MEDS: LACTOBACILLUS RHAMNOSUS GG 1 EACH CAPSULE PO SCH ×2 (08:32→20:43)
[2016-08-10] MEDS: OMEGA-3 FATTY ACIDS/FISH OIL CAPSULE PO SCH (08:32)
[2016-08-10] MEDS: CHOLECALCIFEROL 1,000 UNIT TABLET PO SCH (08:32)
[2016-08-10] MEDS: ASCORBIC ACID 500 MG TABLET PO SCH (08:32)
[2016-08-10] MEDS: CYANOCOBALAMIN 1,000 MCG TABLET PO SCH (08:32)
[2016-08-10] MEDS: RIFAMPIN 300 MG CAPSULE PO SCH (08:32)
[2016-08-10] MEDS: MULTIVITAMINS,THERAPEUTIC TABLET PO SCH (08:32)
[2016-08-10] MEDS: MUPIROCIN 2% OINT 22 GM TUBE NS SCH ×2 (08:48→22:42)
[2016-08-10 10:10] LABS: EOSINOPHILS % (MANUAL) 3 % (0-8); LYMPHOCYTES % (MANUAL) 9 % (20-40); MONOCYTES % (MANUAL) 7 % (2-10); NEUTROPHILS % (MANUAL) 81 % (42-75)
[2016-08-10 12:58] VITALS: BP 98/59
--- NOTE | 2016-08-10 15:40 | NUR ---
PHARMACY CLINICAL NOTE - Vancomycin pharmacy to dose Subjective: 85 yo male with dx of severe sepsis. MRSA bacteremia Objectives: BUN/SCR 35/1.3, WBC 13.7, TMAX = 98.4, DOSING WT 157 LBS Assessment /plan: Since renal function has improved, rescheduled vanco 1250mg from q30hr to q24hr, with second dose of regimen due today at 1800. Expected estimated trough to be around 15. Will order trough before 4th scheduled dose (not ordered yet) and adjust as accordingly. Will continue to monitor renal function and adjust regimen as needed. Will continue to monitor
--- NOTE | 2016-08-10 16:15 | NUR ---
PATIENT IN NO ACUTE DISTRESS THROUGHOUT SHIFT. CALM AND COOPERATIVE. NO BEHAVIORS NOTED. TURNED AND REPOSITIONED EVERY 2 HOURS AND PRN. HEELS FLOATED ON PILLOWS.
[2016-08-10 16:22] VITALS: BP 135/64
[2016-08-10] MEDS: VANCOMYCIN IV 1,250 MG in IV DEXTROSE 5% 500 ML IV SCH (17:18)
--- NOTE | 2016-08-10 19:10 | NUR ---
PATIENT AWAKE BUT FORGETFULL, PATIENT HAS EPISODES OF RESTLESSNESS, TRIES TO CLIMB OUT OF BED, DESPITE REORIENTATION, BEHAVIOUR PERSIST, KEPT CLEAN DRY AND COMFORTABLE, NO SOB NO CHEST PAIN, DENIES PAIN AT THIS TIME. SINUS RYTHM AT THIS TIME. CONT ON 1;1 SITTER FOR SAFETY, CONT ON CONTACT ISOLATION FOR MRSA OF BLOOD, CONT TO MONITOR.
[2016-08-10 20:25] VITALS: BP 144/70
[2016-08-10] MEDS: LORAZEPAM 0.5 MG TABLET PO PRN (20:43)
[2016-08-10] MEDS: ATORVASTATIN 40 MG TABLET PO SCH (20:43)
[2016-08-10] MEDS: LORAZEPAM 2 MG/1 ML VIAL IV PRN (22:29)
--- NOTE | 2016-08-10 23:34 | NUR ---
SEEN BY DR URIAS WITH NEW ORDER, TO D/C TELEMETRY.
[2016-08-11 02:32] VITALS: BP 120/60
[2016-08-11 03:37] VITALS: BP 152/66
--- NOTE | 2016-08-11 06:53 | NUR ---
PATIENT AWAKE FORGETFULL, NO SOB NO CHEST PAIN, CONT ON 1;1 SITTER FOR SAFETY, REMAIN ON CONTACT ISOLATION FOR MRSA BLOOD, CONT ON OXYGEN THERAPY, OXYGEN SAT WNL, PATIENT RESENDIZ DRAINING WITH YELLOW COLOR URINE, IN MODERATE AMT. WITH EPISODES OF AGITATION TRIES TO CLIMB OOB, FREQUENT VISUAL CHECK DONE.
[2016-08-11] MEDS: OMEGA-3 FATTY ACIDS/FISH OIL CAPSULE PO SCH (09:08)
[2016-08-11] MEDS: MULTIVITAMINS,THERAPEUTIC TABLET PO SCH (09:08)
[2016-08-11] MEDS: CHOLECALCIFEROL 1,000 UNIT TABLET PO SCH (09:08)
[2016-08-11] MEDS: CYANOCOBALAMIN 1,000 MCG TABLET PO SCH (09:08)
[2016-08-11] MEDS: RIFAMPIN 300 MG CAPSULE PO SCH (09:09)
[2016-08-11] MEDS: LACTOBACILLUS RHAMNOSUS GG 1 EACH CAPSULE PO SCH ×2 (09:09→20:38)
[2016-08-11] MEDS: ASCORBIC ACID 500 MG TABLET PO SCH (09:09)
[2016-08-11] MEDS: FLUCONAZOLE 200 MG TABLET PO SCH (09:09)
[2016-08-11] MEDS: MUPIROCIN 2% OINT 22 GM TUBE NS SCH ×2 (09:10→20:39)
[2016-08-11] MEDS: LORAZEPAM 2 MG/1 ML VIAL IV PRN (11:42)
[2016-08-11 14:16] VITALS: BP_SYST 102; BP_SYST 162; BP_DIAS 70
--- NOTE | 2016-08-11 14:54 | NUR ---
PHARMACY CLINICAL NOTE - Vancomycin pharmacy to dose Subjective: 85 yo male with dx of severe sepsis. MRSA bacteremia Objectives: BUN/SCR 35/1.3 (08/10) WBC 13.7 (08/10) TMAX = 98.1, DOSING WT 157 LBS Assessment /plan: Continued on vanco 1250mg from q30hr to q24hr, with third dose of regimen due today at 1800. Expected estimated trough to be around 15. Ordered trough before 4th scheduled dose, is due tomorrow at 1730. Will check level and adjust as accordingly. Will continue to monitor renal function and adjust regimen as needed. Will continue to monitor
[2016-08-11 15:00] VITALS: BP 152/72
[2016-08-11] MEDS: VANCOMYCIN IV 1,250 MG in IV DEXTROSE 5% 500 ML IV SCH (18:03)
--- NOTE | 2016-08-11 19:16 | NUR ---
PATIENT HAS HAD SOME AGITATION TODAY, AND HAS HAD SOME INTERMITTENT COOPERATIVE MOMENTS. PATIENTS VITALS ARE WNL, NO SOB, OR EVIDENCE OF DISTRESS.
[2016-08-11 20:28] VITALS: BP 153/67
[2016-08-11] MEDS: ATORVASTATIN 40 MG TABLET PO SCH (20:38)
[2016-08-11] MEDS: ACETAMINOPHEN 325 MG TABLET PO PRN (20:38)
[2016-08-11] MEDS: LORAZEPAM 0.5 MG TABLET PO PRN (20:38)
--- NOTE | 2016-08-11 21:00 | NUR ---
Received patient in anxious in bed, awake alert & oriented wishes to go home. Ativan 0.5 mg po given & monitored. 1:1 sitter in room for patient's safety. Noted large yellow soft BM, perianal care & sponge bath provided. kept patient comfortable.
[2016-08-12 04:02] VITALS: BP 154/60
--- NOTE | 2016-08-12 06:51 | NUR ---
Rested well, cooperative w/ staff & treatment throughout shift. No acute resp distress. Vital signs are stable.
[2016-08-12 06:58] LABS: BASOPHILS # (AUTO) 0.1 K/uL (0.0-8.0); BASOPHILS % (AUTO) 0.5 % (0.0-2.0); EOSINOPHILS # (AUTO) 0.4 K/uL (0.0-0.7); EOSINOPHILS % (AUTO) 3.9 % (0.0-7.0); LYMPHOCYTES # (AUTO) 1.8 K/UL (0.8-4.8); LYMPHOCYTES % (AUTO) 15.7 % (20.5-51.5); MEAN CORPUSCULAR HEMOGLOBIN 28.6 UUG (27.0-31.0); MEAN CORPUSCULAR HGB CONC 33 g/dL (32.0-37.0); MEAN CORPUSCULAR VOLUME 86.3 FL (82.0-92.0); MONOCYTES # (AUTO) 1.4 K/UL (0.1-1.30); MONOCYTES % (AUTO) 12.6 % (0.0-11.0); NEUTROPHILS # (AUTO) 7.7 K/UL (1.8-8.9); NEUTROPHILS % (AUTO) 67.3 % (38.5-71.5); WHITE BLOOD COUNT (AUTO) 11.4 K/UL (4.0-11.2)
[2016-08-12 07:20] LABS: HEMATOCRIT 28.9 % (40-50); HEMOGLOBIN 9.6 G/DL (14.0-18.0); RED BLOOD CELL COUNT(AUTO) 3.35 MIL/UL (4.7-6.1)
[2016-08-12 07:34] LABS: ALANINE AMINOTRANSFERASE 21 U/L (16-63); ALKALINE PHOSPHATASE 91 U/L (50-136); ASPARTATE AMINOTRANSFERASE 26 U/L (15-37); BILIRUBIN,TOTAL 1.3 mg/dL (0.2-1.0); CARBON DIOXIDE 28 mmol/L (21-32); CHLORIDE 108 mmol/L (98-107); CREATININE 1.1 mg/dL (0.6-1.3); GLUCOSE 116 mg/dL (74-106); MAGNESIUM 1.9 mg/dL (1.8-2.4); PHOSPHOROUS 3.4 mg/dL (2.5-4.9); POTASSIUM 3.7 mmol/L (3.5-5.1); TOTAL PROTEIN, SERUM 6.9 g/dL (6.4-8.2); UREA NITROGEN, BLOOD 22 mg/dL (7-18)
[2016-08-12 08:00] VITALS: BP 159/62
[2016-08-12 08:25] LABS: EOSINOPHILS % (MANUAL) 6 % (0-8); LYMPHOCYTES % (MANUAL) 15 % (20-40); MONOCYTES % (MANUAL) 11 % (2-10); NEUTROPHILS % (MANUAL) 68 % (42-75)
--- NOTE | 2016-08-12 08:30 | NUR ---
RECEIVED PATIENT IN BED AWAKE ALERT AND VERBALLY RESPONDS TO QUESTIONS ASKED DUE MEDICATIONS GIVEN AND TAKEN WELL.
[2016-08-12 08:43] LABS: PLATELET COUNT (AUTO) 70 K/UL (150-450)
[2016-08-12] MEDS: MULTIVITAMINS,THERAPEUTIC TABLET PO SCH (09:15)
[2016-08-12] MEDS: CYANOCOBALAMIN 1,000 MCG TABLET PO SCH (09:15)
[2016-08-12] MEDS: OMEGA-3 FATTY ACIDS/FISH OIL CAPSULE PO SCH (09:15)
[2016-08-12] MEDS: FLUCONAZOLE 200 MG TABLET PO SCH (09:16)
[2016-08-12] MEDS: LACTOBACILLUS RHAMNOSUS GG 1 EACH CAPSULE PO SCH ×2 (09:16→21:11)
[2016-08-12] MEDS: ASCORBIC ACID 500 MG TABLET PO SCH (09:16)
[2016-08-12] MEDS: RIFAMPIN 300 MG CAPSULE PO SCH (09:16)
[2016-08-12] MEDS: CHOLECALCIFEROL 1,000 UNIT TABLET PO SCH (09:16)
[2016-08-12] MEDS: MUPIROCIN 2% OINT 22 GM TUBE NS SCH ×2 (09:19→21:11)
[2016-08-12 12:00] VITALS: BP 157/65
--- NOTE | 2016-08-12 14:00 | NUR ---
PATIENT SEEN AND EXAMINED BY DR STEPHENS WITH NEW ORDERS AND NOTED.PATIENTS IS AT THE BEDSIDE AND AWARE OF DISCHARGE PLANNING AND EXPRESSED UNDERSTANDING.
[2016-08-12 15:46] VITALS: BP 139/59
--- NOTE | 2016-08-12 16:03 | NUR ---
PHARMACY CLINICAL NOTE - Vancomycin pharmacy to dose Subjective: 85 yo male with dx of severe sepsis. MRSA bacteremia Objectives: BUN/SCR 22/1.1 (08/10) WBC 11.4 (08/10) TMAX = 98.3, DOSING WT 157 LBS Assessment /plan: Continued on vanco 1250mg iv q24hr. Expected estimated trough to be around 15. Ordered trough before 4th scheduled dose, is due today at 1730. Will check level and adjust as accordingly. Will continue to monitor renal function and adjust regimen as needed. Will continue to monitor Addendum: 08/12/16 at 1915 by [place]O ADM VANCOMYCIN LEVEL IS BACK@ 15.3 . WILL CONTINUE WITH THE SAME DOSE. THE SCR VALUE DECREASED TO 1.1 TODAY, IF IT REDUCES MORE WILL CONSIDER ADJUSTING THE DOSE.
--- NOTE | 2016-08-12 19:30 | NUR ---
PATIENT ALERT AND AWAKE ON BED. NO C/O OF PAIN OR ANY DISCOMFORT NOTED. PATIENT CALM AND CO- OPERATIVE. ON CONTACT ISOLATION FOR MRSA OF NARES. 1:1 SITTER AT THE BED SIDE. PICCLINE DRESSING ON ON R UPPER ARM CLEAN AND INTACT. PERIPHERAL IV ON R FA INTACT .F/C DRAINING YELLOW URINE.PATIENT ON FIRST STEP AIR MATRESS. WILL CONTINUE OT MONITOR.
[2016-08-12] MEDS: VANCOMYCIN IV 1,250 MG in IV DEXTROSE 5% 500 ML IV SCH (19:49)
[2016-08-12 20:00] VITALS: BP 132/72
[2016-08-12] MEDS: ATORVASTATIN 40 MG TABLET PO SCH (21:11)
[2016-08-13] MEDS: ZOLPIDEM 5 MG TABLET PO PRN (00:13)
[2016-08-13 05:00] VITALS: BP 153/80
--- NOTE | 2016-08-13 06:26 | NUR ---
PATIENT INTERMITTENTLY SLEEPING. NO BEHAVIORAL ISSUES NOTED. CONTINUING ON CONTACT ISOLATION FOR MRSA OF NARES. CONTINUING ON ATB ORDERED. 1:1 SITTER AT THE BEDSIDE FOR SAFETY. F/C DRAINING YELLOW URINE . DRESSING ON LEFT LOWER LEG CLEAN AND INTACT. SAFETY MEASURES OBSERVED.
[2016-08-13 07:07] LABS: BASOPHILS % (AUTO) 0.1 % (0.0-2.0); EOSINOPHILS # (AUTO) 0.3 K/uL (0.0-0.7); EOSINOPHILS % (AUTO) 2.9 % (0.0-7.0); HEMATOCRIT 27.2 % (40-50); LYMPHOCYTES # (AUTO) 1.6 K/UL (0.8-4.8); LYMPHOCYTES % (AUTO) 14.4 % (20.5-51.5); MEAN CORPUSCULAR HEMOGLOBIN 28.3 UUG (27.0-31.0); MEAN CORPUSCULAR HGB CONC 33 g/dL (32.0-37.0); MEAN CORPUSCULAR VOLUME 85.7 FL (82.0-92.0); MONOCYTES # (AUTO) 1.3 K/UL (0.1-1.30); MONOCYTES % (AUTO) 11.3 % (0.0-11.0); NEUTROPHILS # (AUTO) 8.2 K/UL (1.8-8.9); NEUTROPHILS % (AUTO) 71.3 % (38.5-71.5); PLATELET COUNT (AUTO) 65 K/UL (150-450); RED BLOOD CELL COUNT(AUTO) 3.18 MIL/UL (4.7-6.1); WHITE BLOOD COUNT (AUTO) 11.4 K/UL (4.0-11.2)
--- NOTE | 2016-08-13 07:22 | NUR ---
PT RECEIVED IN BED AWAKE.SITTER AT BED SIDE.PT IS AXOX2
[2016-08-13 07:24] LABS: CARBON DIOXIDE 30 mmol/L (21-32); CHLORIDE 107 mmol/L (98-107); GLUCOSE 103 mg/dL (74-106); MAGNESIUM 1.8 mg/dL (1.8-2.4); PHOSPHOROUS 3.9 mg/dL (2.5-4.9); POTASSIUM 3.7 mmol/L (3.5-5.1); UREA NITROGEN, BLOOD 25 mg/dL (7-18)
[2016-08-13] MEDS: CYANOCOBALAMIN 1,000 MCG TABLET PO SCH (08:03)
[2016-08-13] MEDS: LACTOBACILLUS RHAMNOSUS GG 1 EACH CAPSULE PO SCH (08:03)
[2016-08-13] MEDS: OMEGA-3 FATTY ACIDS/FISH OIL CAPSULE PO SCH (08:03)
[2016-08-13] MEDS: FLUCONAZOLE 200 MG TABLET PO SCH (08:03)
[2016-08-13] MEDS: MULTIVITAMINS,THERAPEUTIC TABLET PO SCH (08:03)
[2016-08-13] MEDS: RIFAMPIN 300 MG CAPSULE PO SCH (08:04)
[2016-08-13] MEDS: CHOLECALCIFEROL 1,000 UNIT TABLET PO SCH (08:04)
[2016-08-13] MEDS: MUPIROCIN 2% OINT 22 GM TUBE NS SCH (08:04)
[2016-08-13] MEDS: ASCORBIC ACID 500 MG TABLET PO SCH (08:04)
[2016-08-13 09:05] LABS: BAND % (MANUAL) 2 % (0-10); EOSINOPHILS % (MANUAL) 4 % (0-8); LYMPHOCYTES % (MANUAL) 15 % (20-40); METAMYELOCYTES % 1 % (0-1); MONOCYTES % (MANUAL) 10 % (2-10); NEUTROPHILS % (MANUAL) 68 % (42-75)
--- NOTE | 2016-08-13 09:30 | NUR ---
pt seen by dr guajardo .
--- NOTE | 2016-08-13 11:35 | NUR ---
d/c orders received noted and carried out.d/c instructions and educations given to the pt and ,pt left the facility via ambulances with piccline and folly catheter to [facility]
--- NOTE | 2016-08-13 12:12 | NUR ---
The patient will be discharged today to [facility] [ ; [address] [place] [address]] via [facility]. Both he and his are in agreement with the discharge plan. Spoke to Dea from [facility] and she confirmed that they will admit the patient today. His nurse, Martha, is aware of his discharge plan and will call the facility for the report.
== END 2016-08-13 11:35 | DRG 314 ==
LOC: ER 22:02 → TELE 08-07 01:29 → CCU 08-07 23:24 → TELE 08-09 16:07 → MED 08-10 23:36
PROVIDERS: ADMIT Internal Medicine Nephrology; ATTEND Internal Medicine Nephrology
PROC: 30233N1 Transfusion of Nonautologous Red Blood Cells into Peripheral Vein, Percutaneous Approach (ICD-10-PCS; principal; 2016-08-07)
PROC: 02HV33Z Insertion of Infusion Device into Superior Vena Cava, Percutaneous Approach (ICD-10-PCS; 2016-08-08)
DX: T82.7XXA Infection and inflammatory reaction due to other cardiac and vascular devices, implants and grafts, initial encounter (principal); A41.02 Sepsis due to Methicillin resistant Staphylococcus aureus; R65.21 Severe sepsis with septic shock; N17.0 Acute kidney failure with tubular necrosis; G92 Toxic encephalopathy; I13.0 Hypertensive heart and chronic kidney disease with heart failure and stage 1 through stage 4 chronic kidney disease, or unspecified chronic kidney disease; I50.32 Chronic diastolic (congestive) heart failure; D62 Acute posthemorrhagic anemia; E44.0 Moderate protein-calorie malnutrition; L97.929 Non-pressure chronic ulcer of unspecified part of left lower leg with unspecified severity; E86.1 Hypovolemia; E78.5 Hyperlipidemia, unspecified; I25.10 Atherosclerotic heart disease of native coronary artery without angina pectoris; N18.9 Chronic kidney disease, unspecified; Z86.73 Personal history of transient ischemic attack (TIA), and cerebral infarction without residual deficits; D63.8 Anemia in other chronic diseases classified elsewhere; E87.5 Hyperkalemia; I73.9 Peripheral vascular disease, unspecified; R55 Syncope and collapse; D69.6 Thrombocytopenia, unspecified; Z68.21 Body mass index [BMI] 21.0-21.9, adult; I25.2 Old myocardial infarction; I25.5 Ischemic cardiomyopathy; Z87.891 Personal history of nicotine dependence; N40.0 Benign prostatic hyperplasia without lower urinary tract symptoms; D72.829 Elevated white blood cell count, unspecified; B35.1 Tinea unguium
CPT/HCPCS: 36415; 36569; 70030-TC; 70450; 71010; 72125; 73630; 76770; 83550; 83605; 83690; 83735; 83970; 84100; 84155; 84156; 84165; 84300; 85018; 85025; 85730; 86850; 86900; 86901; 86920; 87040; 87070; 87077; 87086; 92610; 93005; 93307; 93880; A4217; A4663; J1170; J1940; J2060; J2185; J2405; J2543; J3370; J3490; J7030; J7040; J7042; J7050; J7060; P9016-BL; P9021

== ENCOUNTER 2016-09-29 13:30 | Inpatient (IN) | payer MEDICARE, BC ==
[~2016-09-29] VITALS: Ht 182.9 cm; Wt 70.3 kg
[~2016-09-29 13:30] MED LIST changes: +CYAN10009 PO; -VITAMIN B-12; -ZINC50TA4 PO
[2016-09-29] MEDS ORDERED: SULF1TAB48 PO (13:42)
[2016-09-29] MEDS ORDERED: ALBUTEROL SULFATE 2.5 MG/3 ML NEBU NEB ONE (14:00)
[2016-09-29 14:32] LABS: BASOPHILS # (AUTO) 0.1 K/uL (0.0-8.0); BASOPHILS % (AUTO) 0.8 % (0.0-2.0); EOSINOPHILS # (AUTO) 0.2 K/uL (0.0-0.7); EOSINOPHILS % (AUTO) 2.6 % (0.0-7.0); HEMATOCRIT 25.3 % (40-50); LYMPHOCYTES # (AUTO) 1.8 K/UL (0.8-4.8); MEAN CORPUSCULAR HEMOGLOBIN 27.4 UUG (27.0-31.0); MEAN CORPUSCULAR HGB CONC 32 g/dL (32.0-37.0); MEAN CORPUSCULAR VOLUME 86.5 FL (82.0-92.0); MONOCYTES # (AUTO) 0.7 K/UL (0.1-1.30); MONOCYTES % (AUTO) 8.2 % (0.0-11.0); NEUTROPHILS # (AUTO) 5.5 K/UL (1.8-8.9); NEUTROPHILS % (AUTO) 66.4 % (38.5-71.5); RED BLOOD CELL COUNT(AUTO) 2.93 MIL/UL (4.7-6.1)
[2016-09-29 14:36] LABS: PLATELET COUNT (AUTO) 65 K/UL (150-450); WHITE BLOOD COUNT (AUTO) 8.3 K/UL (4.0-11.2)
[2016-09-29] MEDS ORDERED: ALBUTEROL SULFATE 2.5 MG/ 0.5 ML NEBU ONE (14:41)
[2016-09-29 15:09] LABS: ALANINE AMINOTRANSFERASE 23 U/L (16-63); ALKALINE PHOSPHATASE 96 U/L (50-136); ASPARTATE AMINOTRANSFERASE 20 U/L (15-37); BILIRUBIN,DIRECT 0.1 mg/dL (0.0-0.2); BILIRUBIN,TOTAL 0.5 mg/dL (0.2-1.0); CARBON DIOXIDE 24 mmol/L (21-32); CHLORIDE 106 mmol/L (98-107); CREATININE 2.3 mg/dL (0.6-1.3); GLUCOSE 97 mg/dL (74-106); TOTAL PROTEIN, SERUM 7.5 g/dL (6.4-8.2); UREA NITROGEN, BLOOD 40 mg/dL (7-18)
[2016-09-29 15:10] LABS: POTASSIUM 7.5 mmol/L (3.5-5.1)
[2016-09-29 15:25] LABS: BAND % (MANUAL) 4 % (0-10); EOSINOPHILS % (MANUAL) 4 % (0-8); LYMPHOCYTES % (MANUAL) 23 % (20-40); MONOCYTES % (MANUAL) 7 % (2-10); NEUTROPHILS % (MANUAL) 62 % (42-75)
[2016-09-29 17:17] VITALS: BP 101/51
[2016-09-29] MEDS ORDERED: ZOLPIDEM 5 MG TABLET PO PRN (17:30)
[2016-09-29] MEDS ORDERED: ACETAMINOPHEN 325 MG TABLET PO PRN (17:30)
[2016-09-29] MEDS ORDERED: MAGNESIUM HYDROXIDE 30 ML LIQUID UDC PO PRN (17:30)
[2016-09-29] MEDS ORDERED: ONDANSETRON 4 MG/2 ML VIAL IV PRN (17:30)
[2016-09-29] MEDS: CARVEDILOL 6.25 MG TABLET PO SCH (18:00)
[2016-09-29] MEDS: FUROSEMIDE 40 MG/4 ML VIAL IV SCH ×2 (18:30→20:54)
[2016-09-29 20:00] VITALS: BP 113/58
[2016-09-30] MEDS: PANTOPRAZOLE SODIUM 40 MG TABLET.DR PO SCH (06:39)
[2016-09-30 06:40] LABS: BASOPHILS % (AUTO) 0.2 % (0.0-2.0); EOSINOPHILS # (AUTO) 0.2 K/uL (0.0-0.7); EOSINOPHILS % (AUTO) 2.8 % (0.0-7.0); HEMOGLOBIN 8.1 G/DL (14.0-18.0); LYMPHOCYTES # (AUTO) 1.6 K/UL (0.8-4.8); LYMPHOCYTES % (AUTO) 23.5 % (20.5-51.5); MEAN CORPUSCULAR HEMOGLOBIN 28.2 UUG (27.0-31.0); MEAN CORPUSCULAR HGB CONC 32 g/dL (32.0-37.0); MONOCYTES # (AUTO) 0.6 K/UL (0.1-1.30); MONOCYTES % (AUTO) 8.4 % (0.0-11.0); NEUTROPHILS # (AUTO) 4.4 K/UL (1.8-8.9); NEUTROPHILS % (AUTO) 65.1 % (38.5-71.5); PLATELET COUNT (AUTO) 57 K/UL (150-450); RED BLOOD CELL COUNT(AUTO) 2.88 MIL/UL (4.7-6.1); WHITE BLOOD COUNT (AUTO) 6.8 K/UL (4.0-11.2)
[2016-09-30 06:44] LABS: IRON, SERUM 62 ug/dL (50-175)
[2016-09-30 07:29] LABS: ALANINE AMINOTRANSFERASE 22 U/L (16-63); ALKALINE PHOSPHATASE 103 U/L (50-136); ASPARTATE AMINOTRANSFERASE 19 U/L (15-37); BILIRUBIN,TOTAL 0.7 mg/dL (0.2-1.0); CARBON DIOXIDE 22 mmol/L (21-32); CHLORIDE 106 mmol/L (98-107); CHOLESTEROL 111 mg/dL (<200); CREATININE 2.4 mg/dL (0.6-1.3); FERRITIN 1446 ng/mL (26-388); GLUCOSE 73 mg/dL (74-106); HDL CHOLESTEROL 40 mg/dL (40-60); MAGNESIUM 2.1 mg/dL (1.8-2.4); PHOSPHOROUS 4.7 mg/dL (2.5-4.9); POTASSIUM 5.8 mmol/L (3.5-5.1); TOTAL PROTEIN, SERUM 7.4 g/dL (6.4-8.2); TRIGLYCERIDES 69 MG/DL (30-150); UREA NITROGEN, BLOOD 36 mg/dL (7-18)
[2016-09-30 07:43] LABS: CREATINE KINASE, TOTAL 66 U/L (39-308)
[2016-09-30 07:48] LABS: *BILIRUBIN,URIN NEGATIVE (NEGATIVE); *BLOOD, URINE NEGATIVE (NEGATIVE); *CLARITY,URINE CLEAR (CLEAR); *COLOR,URINE STRAW (YELLOW); *KETONES,URINE NEGATIVE (NEGATIVE); *PROTEIN,URINE NEGATIVE (NEGATIVE); *UROBILINOGEN,URINE 0.2 E.U./dl (NORMAL); LEUKOCYTE ESTERASE ,URINE NEGATIVE (NEGATIVE); NITRITE, URINE NEGATIVE (NEGATIVE); PH,URINE 5.5 (5.0-8.0); UGLUCOSE NEGATIVE (NEGATIVE)
[2016-09-30 07:54] LABS: *URINE TOTAL PROTEIN RANDOM 12.2 mg/dL (<150/24HR)
[2016-09-30 07:57] LABS: BACTERIA,URINE NONE SEEN /HPF (NONE SEEN); RBC,URINE NONE SEEN /HPF (0-3); SQUAMOUS EPITHELIAL CELL,UR NONE SEEN /HPF (NONE SEEN); WBC,URINE NONE SEEN /HPF (0-3); YEAST,URINE NONE SEEN /HPF (NONE SEEN)
[2016-09-30 08:05] LABS: BASOPHILS % (MANUAL) 2 % (0-2); EOSINOPHILS % (MANUAL) 3 % (0-8); LYMPHOCYTES % (MANUAL) 25 % (20-40); NEUTROPHILS % (MANUAL) 63 % (42-75)
[2016-09-30 08:06] LABS: MONOCYTES % (MANUAL) 7 % (2-10)
[2016-09-30] MEDS: CLOPIDOGREL 75 MG TABLET PO SCH (08:49)
[2016-09-30] MEDS: CYANOCOBALAMIN 1,000 MCG TABLET PO SCH (08:49)
[2016-09-30] MEDS: ASPIRIN EC 81 MG TABLET.DR PO SCH (08:49)
[2016-09-30] MEDS: FUROSEMIDE 40 MG/4 ML VIAL IV SCH ×2 (08:49→20:43)
[2016-09-30] MEDS: CARVEDILOL 6.25 MG TABLET PO SCH ×2 (08:54→17:29)
[2016-09-30] MEDS: IV NS 1000 ML 1,000 ML IV PRN (10:56)
[2016-09-30 11:04] VITALS: BP 169/62
[2016-09-30 15:19] VITALS: BP 152/81
[2016-09-30] MEDS: HYDROCODONE/APAP 5-325MG TABLET PO PRN ×2 (15:22→22:04)
[2016-09-30 20:00] VITALS: BP 122/35
[2016-09-30] MEDS: ATORVASTATIN 40 MG TABLET PO SCH (20:43)
[2016-10-01] VITALS: BP 143/37
[2016-10-01 04:00] VITALS: BP 127/65
[2016-10-01] MEDS: IV NS 1000 ML 1,000 ML IV PRN (06:16)
[2016-10-01] MEDS: PANTOPRAZOLE SODIUM 40 MG TABLET.DR PO SCH (06:49)
[2016-10-01] MEDS: CARVEDILOL 6.25 MG TABLET PO SCH ×3 (08:00→17:45)
[2016-10-01] MEDS: ASPIRIN EC 81 MG TABLET.DR PO SCH (08:33)
[2016-10-01] MEDS: FUROSEMIDE 40 MG/4 ML VIAL IV SCH ×2 (08:33→20:48)
[2016-10-01] MEDS: CLOPIDOGREL 75 MG TABLET PO SCH (08:33)
[2016-10-01] MEDS: CYANOCOBALAMIN 1,000 MCG TABLET PO SCH (08:33)
[2016-10-01 11:00] VITALS: BP 145/70
[2016-10-01 12:50] LABS: ALANINE AMINOTRANSFERASE 20 U/L (16-63); ALKALINE PHOSPHATASE 97 U/L (50-136); ASPARTATE AMINOTRANSFERASE 18 U/L (15-37); BILIRUBIN,TOTAL 0.6 mg/dL (0.2-1.0); CARBON DIOXIDE 24 mmol/L (21-32); CHLORIDE 105 mmol/L (98-107); CREATININE 2.3 mg/dL (0.6-1.3); GLUCOSE 102 mg/dL (74-106); PHOSPHOROUS 4.9 mg/dL (2.5-4.9); POTASSIUM 5.4 mmol/L (3.5-5.1); TOTAL PROTEIN, SERUM 7.1 g/dL (6.4-8.2); UREA NITROGEN, BLOOD 35 mg/dL (7-18)
[2016-10-01 12:53] LABS: BASOPHILS % (AUTO) 0.7 % (0.0-2.0); EOSINOPHILS # (AUTO) 0.2 K/uL (0.0-0.7); EOSINOPHILS % (AUTO) 2.4 % (0.0-7.0); HEMATOCRIT 26.6 % (40-50); HEMOGLOBIN 8.5 G/DL (14.0-18.0); LYMPHOCYTES # (AUTO) 1.5 K/UL (0.8-4.8); LYMPHOCYTES % (AUTO) 21.2 % (20.5-51.5); MEAN CORPUSCULAR HEMOGLOBIN 27.7 UUG (27.0-31.0); MEAN CORPUSCULAR HGB CONC 32 g/dL (32.0-37.0); MEAN CORPUSCULAR VOLUME 86.6 FL (82.0-92.0); MONOCYTES # (AUTO) 0.6 K/UL (0.1-1.30); MONOCYTES % (AUTO) 8.9 % (0.0-11.0); NEUTROPHILS # (AUTO) 4.6 K/UL (1.8-8.9); NEUTROPHILS % (AUTO) 66.8 % (38.5-71.5); PLATELET COUNT (AUTO) 60 K/UL (150-450); RED BLOOD CELL COUNT(AUTO) 3.08 MIL/UL (4.7-6.1); WHITE BLOOD COUNT (AUTO) 6.9 K/UL (4.0-11.2)
[2016-10-01 13:32] LABS: BAND % (MANUAL) 1 % (0-10); EOSINOPHILS % (MANUAL) 5 % (0-8); LYMPHOCYTES % (MANUAL) 25 % (20-40); MONOCYTES % (MANUAL) 6 % (2-10); NEUTROPHILS % (MANUAL) 60 % (42-75)
[2016-10-01 13:33] LABS: BASOPHILS % (MANUAL) 3 % (0-2)
[2016-10-01 15:15] VITALS: BP 113/41
[2016-10-01 20:00] VITALS: BP 121/68
[2016-10-01] MEDS: ATORVASTATIN 40 MG TABLET PO SCH (20:49)
[2016-10-02] VITALS (10 sets, daily range): BP systolic 120–159; BP diastolic 33–70
[2016-10-02] MEDS: IV NS 1000 ML 1,000 ML IV PRN (05:47)
[2016-10-02] MEDS: PANTOPRAZOLE SODIUM 40 MG TABLET.DR PO SCH (06:16)
[2016-10-02 06:39] LABS: BASOPHILS % (AUTO) 0.1 % (0.0-2.0); EOSINOPHILS # (AUTO) 0.2 K/uL (0.0-0.7); EOSINOPHILS % (AUTO) 2.5 % (0.0-7.0); HEMOGLOBIN 7.1 G/DL (14.0-18.0); LYMPHOCYTES # (AUTO) 2.1 K/UL (0.8-4.8); LYMPHOCYTES % (AUTO) 23.5 % (20.5-51.5); MEAN CORPUSCULAR HEMOGLOBIN 29.3 UUG (27.0-31.0); MEAN CORPUSCULAR HGB CONC 34 g/dL (32.0-37.0); MEAN CORPUSCULAR VOLUME 86.1 FL (82.0-92.0); MONOCYTES # (AUTO) 1.5 K/UL (0.1-1.30); MONOCYTES % (AUTO) 16.3 % (0.0-11.0); NEUTROPHILS # (AUTO) 5.3 K/UL (1.8-8.9); NEUTROPHILS % (AUTO) 57.6 % (38.5-71.5); PLATELET COUNT (AUTO) 64 K/UL (150-450); WHITE BLOOD COUNT (AUTO) 9.1 K/UL (4.0-11.2)
[2016-10-02 06:52] LABS: ALANINE AMINOTRANSFERASE 16 U/L (16-63); ALKALINE PHOSPHATASE 91 U/L (50-136); ASPARTATE AMINOTRANSFERASE 16 U/L (15-37); BILIRUBIN,TOTAL 0.6 mg/dL (0.2-1.0); CARBON DIOXIDE 21 mmol/L (21-32); CHLORIDE 108 mmol/L (98-107); CREATININE 2.4 mg/dL (0.6-1.3); GLUCOSE 89 mg/dL (74-106); MAGNESIUM 1.8 mg/dL (1.8-2.4); PHOSPHOROUS 4.9 mg/dL (2.5-4.9); POTASSIUM 5.2 mmol/L (3.5-5.1); TOTAL PROTEIN, SERUM 6.5 g/dL (6.4-8.2); UREA NITROGEN, BLOOD 37 mg/dL (7-18)
[2016-10-02 07:10] LABS: HEMATOCRIT 20.7 % (40-50); RED BLOOD CELL COUNT(AUTO) 2.41 MIL/UL (4.7-6.1)
[2016-10-02 07:56] LABS: *OCCULT BLOOD STOOL NEGATIVE (NEGATIVE)
[2016-10-02] MEDS: CARVEDILOL 6.25 MG TABLET PO SCH ×2 (08:00→18:48)
[2016-10-02] MEDS: FUROSEMIDE 40 MG/4 ML VIAL IV SCH ×2 (08:04→20:53)
[2016-10-02] MEDS: CYANOCOBALAMIN 1,000 MCG TABLET PO SCH (08:50)
[2016-10-02 09:30] LABS: EOSINOPHILS % (MANUAL) 1 % (0-8); LYMPHOCYTES % (MANUAL) 26 % (20-40); MONOCYTES % (MANUAL) 8 % (2-10); NEUTROPHILS % (MANUAL) 65 % (42-75)
[2016-10-02 09:50] LABS: BASOPHILS % (AUTO) 0.5 % (0.0-2.0); EOSINOPHILS # (AUTO) 0.1 K/uL (0.0-0.7); EOSINOPHILS % (AUTO) 1.8 % (0.0-7.0); HEMATOCRIT 24.2 % (40-50); HEMOGLOBIN 7.9 G/DL (14.0-18.0); LYMPHOCYTES # (AUTO) 1.4 K/UL (0.8-4.8); LYMPHOCYTES % (AUTO) 19.3 % (20.5-51.5); MEAN CORPUSCULAR HEMOGLOBIN 28.3 UUG (27.0-31.0); MEAN CORPUSCULAR HGB CONC 33 g/dL (32.0-37.0); MEAN CORPUSCULAR VOLUME 86.1 FL (82.0-92.0); MONOCYTES # (AUTO) 0.5 K/UL (0.1-1.30); MONOCYTES % (AUTO) 7.5 % (0.0-11.0); NEUTROPHILS # (AUTO) 5.2 K/UL (1.8-8.9); NEUTROPHILS % (AUTO) 70.9 % (38.5-71.5); PLATELET COUNT (AUTO) 59 K/UL (150-450); RED BLOOD CELL COUNT(AUTO) 2.81 MIL/UL (4.7-6.1); WHITE BLOOD COUNT (AUTO) 7.2 K/UL (4.0-11.2)
[2016-10-02] MEDS: CYANOCOBALAMIN 1000 MCG/ML VIAL IM SCH (09:54)
[2016-10-02] MEDS: CLOPIDOGREL 75 MG TABLET PO SCH (09:54)
[2016-10-02] MEDS: ASPIRIN EC 81 MG TABLET.DR PO SCH (09:54)
[2016-10-02 10:10] LABS: LYMPHOCYTES % (MANUAL) 22 % (20-40); MONOCYTES % (MANUAL) 7 % (2-10); NEUTROPHILS % (MANUAL) 71 % (42-75)
[2016-10-02 10:39] LABS: FERRITIN 1350 ng/mL (26-388)
[2016-10-02 10:51] LABS: IRON, SERUM 52 ug/dL (50-175)
[2016-10-02 13:06] LABS: A/G RATIO 1.4 (0.7-1.7); ALBUMIN 3.9 g/dL (2.9-4.4); ALPHA-1-GLOBULIN 0.3 g/dL (0.0-0.4); ALPHA-2-GLOBULIN 0.7 g/dL (0.4-1.0); BETA GLOBULIN 0.8 g/dL (0.7-1.3); GAMMA GLOBULIN 1.1 g/dL (0.4-1.8); GLOBULIN, TOTAL 2.8 g/dL (2.2-3.9); M-SPIKE Not Observed g/dL (Not Observed)
[2016-10-02] MEDS: ATORVASTATIN 40 MG TABLET PO SCH (20:53)
[2016-10-03] MEDS: IV NS 1000 ML 1,000 ML IV PRN (04:46)
[2016-10-03 05:13] VITALS: BP 140/65
[2016-10-03] MEDS: PANTOPRAZOLE SODIUM 40 MG TABLET.DR PO SCH (06:47)
[2016-10-03 06:49] LABS: BASOPHILS % (AUTO) 0.7 % (0.0-2.0); EOSINOPHILS # (AUTO) 0.2 K/uL (0.0-0.7); EOSINOPHILS % (AUTO) 2.7 % (0.0-7.0); HEMATOCRIT 25.8 % (40-50); HEMOGLOBIN 8.8 G/DL (14.0-18.0); LYMPHOCYTES # (AUTO) 1.9 K/UL (0.8-4.8); LYMPHOCYTES % (AUTO) 29.3 % (20.5-51.5); MEAN CORPUSCULAR HEMOGLOBIN 29.6 UUG (27.0-31.0); MEAN CORPUSCULAR HGB CONC 34 g/dL (32.0-37.0); MONOCYTES # (AUTO) 0.6 K/UL (0.1-1.30); MONOCYTES % (AUTO) 9.4 % (0.0-11.0); NEUTROPHILS # (AUTO) 3.7 K/UL (1.8-8.9); NEUTROPHILS % (AUTO) 57.9 % (38.5-71.5); PLATELET COUNT (AUTO) 59 K/UL (150-450); RED BLOOD CELL COUNT(AUTO) 2.97 MIL/UL (4.7-6.1); WHITE BLOOD COUNT (AUTO) 6.4 K/UL (4.0-11.2)
[2016-10-03 06:53] LABS: ALANINE AMINOTRANSFERASE 19 U/L (16-63); ALKALINE PHOSPHATASE 91 U/L (50-136); ASPARTATE AMINOTRANSFERASE 16 U/L (15-37); BILIRUBIN,TOTAL 0.9 mg/dL (0.2-1.0); CARBON DIOXIDE 23 mmol/L (21-32); CHLORIDE 108 mmol/L (98-107); CREATININE 2.1 mg/dL (0.6-1.3); GLUCOSE 88 mg/dL (74-106); MAGNESIUM 1.9 mg/dL (1.8-2.4); PHOSPHOROUS 4.3 mg/dL (2.5-4.9); POTASSIUM 4.8 mmol/L (3.5-5.1); TOTAL PROTEIN, SERUM 6.7 g/dL (6.4-8.2); UREA NITROGEN, BLOOD 41 mg/dL (7-18)
[2016-10-03] MEDS: CARVEDILOL 6.25 MG TABLET PO SCH ×2 (08:00→17:24)
[2016-10-03] MEDS: CLOPIDOGREL 75 MG TABLET PO SCH (08:53)
[2016-10-03] MEDS: GENTAMICIN SULFATE 0.1% OINT 15 GM TUBE TP SCH ×2 (08:54→16:53)
[2016-10-03] MEDS: ASPIRIN EC 81 MG TABLET.DR PO SCH (08:54)
[2016-10-03] MEDS: FUROSEMIDE 40 MG/4 ML VIAL IV SCH (08:54)
[2016-10-03] MEDS: SODIUM HYPOCHLORITE 0.125% 473 ML BOTTLE TP SCH ×2 (08:54→16:52)
[2016-10-03] MEDS: CYANOCOBALAMIN 1000 MCG/ML VIAL IM SCH (08:54)
[2016-10-03 09:27] LABS: BAND % (MANUAL) 1 % (0-10); BASOPHILS % (MANUAL) 2 % (0-2); EOSINOPHILS % (MANUAL) 4 % (0-8); LYMPHOCYTES % (MANUAL) 33 % (20-40); MONOCYTES % (MANUAL) 11 % (2-10); NEUTROPHILS % (MANUAL) 49 % (42-75)
[2016-10-03 11:52] VITALS: BP 154/56
[2016-10-03 15:36] VITALS: BP 151/56
[2016-10-03] MEDS ORDERED: ATOR40TA PO (15:36)
[2016-10-03] MEDS ORDERED: CYAN100085 PO (15:36)
[2016-10-03 17:24] VITALS: BP 148/58
== END 2016-10-03 18:30 | disposition home health service (06) | DRG 682 ==
LOC: ER 13:30 → TELE 16:38 → MED 10-01 16:13
PROVIDERS: ADMIT Internal Medicine; ATTEND Internal Medicine
PROC: 30233N1 Transfusion of Nonautologous Red Blood Cells into Peripheral Vein, Percutaneous Approach (ICD-10-PCS; principal; 2016-10-02)
DX: N17.9 Acute kidney failure, unspecified (principal); I50.33 Acute on chronic diastolic (congestive) heart failure; D61.818 Other pancytopenia; E44.0 Moderate protein-calorie malnutrition; I13.0 Hypertensive heart and chronic kidney disease with heart failure and stage 1 through stage 4 chronic kidney disease, or unspecified chronic kidney disease; E87.5 Hyperkalemia; I25.10 Atherosclerotic heart disease of native coronary artery without angina pectoris; D50.0 Iron deficiency anemia secondary to blood loss (chronic); I73.9 Peripheral vascular disease, unspecified; E78.5 Hyperlipidemia, unspecified; Z87.891 Personal history of nicotine dependence; Z95.5 Presence of coronary angioplasty implant and graft; Z79.02 Long term (current) use of antithrombotics/antiplatelets; N18.9 Chronic kidney disease, unspecified; Z68.20 Body mass index [BMI] 20.0-20.9, adult; S91.302D Unspecified open wound, left foot, subsequent encounter; X58.XXXD Exposure to other specified factors, subsequent encounter; Z91.11 Patient's noncompliance with dietary regimen; I25.2 Old myocardial infarction; N14.2 Nephropathy induced by unspecified drug, medicament or biological substance; T37.0X5A Adverse effect of sulfonamides, initial encounter; Y92.009 Unspecified place in unspecified non-institutional (private) residence as the place of occurrence of the external cause; N40.0 Benign prostatic hyperplasia without lower urinary tract symptoms; Z79.82 Long term (current) use of aspirin; Z86.010 Personal history of colon polyps; Z90.49 Acquired absence of other specified parts of digestive tract; Z95.1 Presence of aortocoronary bypass graft; I49.3 Ventricular premature depolarization
CPT/HCPCS: 36415; 70030-TC; 71010; 76770; 83550; 83605; 83735; 83970; 84100; 84155; 84156; 84165; 84300; 85025; 85730; 86850; 86900; 86901; 86920; 87040; 93005; 97116; 97530; A4663; J1940; J3420; J7030; P9016-BL; P9021

== ENCOUNTER 2016-10-05 11:11 | Inpatient (IN) | payer MEDICARE, BC ==
[~2016-10-05] VITALS: Ht 182.9 cm; Wt 72.6 kg
[~2016-10-05 11:11] MED LIST changes: +ATOR40TA PO; +CYAN100085 PO; -FURO-151 PO; -LISI-603 PO; +SULF1TAB48 PO
--- NOTE | 2016-10-05 11:50 | NUR ---
Unable to reconcile medications at this time, pt is unable to provide information and his has gone home.
[2016-10-05] MEDS ORDERED: ONDANSETRON IV *ER 4 MG/2 ML VIAL IV ONE (12:00)
[2016-10-05] MEDS ORDERED: MORPHINE SULFATE 4 MG/1 ML DISP.SYRIN IV ONE (12:00)
[2016-10-05 12:06] LABS: BASOPHILS % (AUTO) 0.1 % (0.0-2.0); EOSINOPHILS # (AUTO) 0.2 K/uL (0.0-0.7); EOSINOPHILS % (AUTO) 2.2 % (0.0-7.0); HEMATOCRIT 25.6 % (40-50); HEMOGLOBIN 8.5 G/DL (14.0-18.0); LYMPHOCYTES # (AUTO) 1.5 K/UL (0.8-4.8); LYMPHOCYTES % (AUTO) 19.7 % (20.5-51.5); MEAN CORPUSCULAR HEMOGLOBIN 28.5 UUG (27.0-31.0); MEAN CORPUSCULAR HGB CONC 33 g/dL (32.0-37.0); MONOCYTES # (AUTO) 0.6 K/UL (0.1-1.30); MONOCYTES % (AUTO) 7.9 % (0.0-11.0); NEUTROPHILS # (AUTO) 5.2 K/UL (1.8-8.9); NEUTROPHILS % (AUTO) 70.1 % (38.5-71.5); PLATELET COUNT (AUTO) 63 K/UL (150-450); RED BLOOD CELL COUNT(AUTO) 2.98 MIL/UL (4.7-6.1); WHITE BLOOD COUNT (AUTO) 7.5 K/UL (4.0-11.2)
[2016-10-05] MEDS ORDERED: MORPHINE SULFATE 4 MG/1 ML DISP.SYRIN ONE (12:06)
[2016-10-05] MEDS ORDERED: ONDANSETRON 4 MG/2 ML VIAL ONE (12:06)
[2016-10-05 12:14] LABS: CARBON DIOXIDE 25 mmol/L (21-32); CHLORIDE 101 mmol/L (98-107); CREATININE 3.4 mg/dL (0.6-1.3); GLUCOSE 121 mg/dL (74-106); POTASSIUM 5.1 mmol/L (3.5-5.1); UREA NITROGEN, BLOOD 63 mg/dL (7-18)
[2016-10-05 12:20] LABS: BAND % (MANUAL) 1 % (0-10); EOSINOPHILS % (MANUAL) 2 % (0-8); LYMPHOCYTES % (MANUAL) 19 % (20-40); MONOCYTES % (MANUAL) 10 % (2-10); NEUTROPHILS % (MANUAL) 68 % (42-75)
--- NOTE | 2016-10-05 12:24 | NUR ---
pt complaing of the left foot even after the morphin given, had to open the dressing to check the wound. removed the padding and soft nilton. pt says feels better after the dressing removed. some redness onthe lateral aspect of the solomon, small wound on top of the foot.
[2016-10-05 12:27] LABS: ALANINE AMINOTRANSFERASE 22 U/L (16-63); ALKALINE PHOSPHATASE 93 U/L (50-136); ASPARTATE AMINOTRANSFERASE 19 U/L (15-37); BILIRUBIN,DIRECT 0.2 mg/dL (0.0-0.2); BILIRUBIN,TOTAL 0.5 mg/dL (0.2-1.0); TOTAL PROTEIN, SERUM 7.2 g/dL (6.4-8.2)
--- NOTE | 2016-10-05 13:36 | NUR ---
called and left a message for samantha garcia
--- NOTE | 2016-10-05 14:36 | NUR ---
called dr. singh again and left a message.
--- NOTE | 2016-10-05 15:09 | NUR ---
Spoke with pt's Daysi via telephone who stated she will bring in a list of pt's current home medications when she comes in. She also spoke with Dr. Arteaga regarding pt's condition and plan of care.
--- NOTE | 2016-10-05 15:58 | NUR ---
PT BROUGHT THE MED LIST. WILL BE RECONCILED
[2016-10-05] MEDS ORDERED: SULF1TAB48 PO (16:04)
[2016-10-05] MEDS ORDERED: OMEG1CAP74 PO (16:04)
[2016-10-05 16:32] VITALS: BP 148/88
--- NOTE | 2016-10-05 16:32 | NUR ---
PT TRANSFERED TO FLOOR. PT SAYS RELIF OF PAIN IN THE LLE. PT DENEIS ANY COMPLAIN.
[2016-10-05 16:43] LABS: *BILIRUBIN,URIN NEGATIVE (NEGATIVE); *BLOOD, URINE NEGATIVE (NEGATIVE); *CLARITY,URINE CLEAR (CLEAR); *COLOR,URINE YELLOW (YELLOW); *KETONES,URINE NEGATIVE (NEGATIVE); *PROTEIN,URINE 1+ (NEGATIVE); *UROBILINOGEN,URINE 0.2 E.U./dl (NORMAL); LEUKOCYTE ESTERASE ,URINE NEGATIVE (NEGATIVE); NITRITE, URINE NEGATIVE (NEGATIVE); PH,URINE 5.5 (5.0-8.0); UGLUCOSE NEGATIVE (NEGATIVE)
--- NOTE | 2016-10-05 16:45 | NUR ---
Received this admission from ER per ede, 85 yo male with the chief complaint of weakness and loss of consciousness in the middle of therapy, with the diagnosis syncope. Transferred to bed comfortably. Routine admission care rendered. Placed on tele SB 55. Saline Left forearm, g20 intact patent. Dr. Ritchie informed of admission with orders. Dinner served
[2016-10-05 17:01] VITALS: BP 137/38
[2016-10-05 18:00] LABS: MUCUS,URINE FEW /LPF (0-FEW); SQUAMOUS EPITHELIAL CELL,UR MODERATE /HPF (NONE SEEN); WBC,URINE 0-3 /HPF (0-3)
[2016-10-05] MEDS: IV NS 1000 ML 1,000 ML IV PRN (19:55)
[2016-10-05] MEDS: CARVEDILOL 6.25 MG TABLET PO SCH (20:00)
[2016-10-05] MEDS ORDERED: MISCELLANEOUS MED XX PRN (20:00)
[2016-10-05 20:33] VITALS: BP 136/38
[2016-10-05] MEDS: ATORVASTATIN 40 MG TABLET PO SCH (20:54)
[2016-10-05] MEDS: SULFAMETH/TRIMETH 800/160 MG TABLET PO SCH (20:54)
--- NOTE | 2016-10-05 21:00 | NUR ---
PT'S A/A/O X3,ON BED REST COMFORTABLY DENIED OF PAIN OR ANY DISCOMFORT.PT'S ON IVF:NSS @ 50 ML/HR MD'S ORDER;EDUCATED TO PT,HE VERBALIZED UNDERSTANDING AND COOPERATIVE NOTED.CLEAN AND DRY AT THE LEFT FOOT D/S SITE.ASSISTED FOR PM CARE ON BED AT THIS TIME.CLOSELY MONITORING TO PT.
--- NOTE | 2016-10-05 22:45 | NUR ---
ASSISTED PT TO BATHROOM FOR URINATION PER PT REQUESTED,STEADY GAIT NOTED,PT DENIED OF ANY DIZZINESS AT THIS TIME,ASSISTED BACK TO BED;EDUCATED TO PT FOR BED REST,HE VERBALIZED UNDERSTANDING AND COOPERATIVE.PT'S FORGETFUL SOMETIMES.PUT ON BED ALARM AT THIS TIME.TELEMETRY'S SB 50/MIN,PT DENIED OF ANY DISCOMFORT.CLOSELY MONITORING TO PT.KEPT CALL-LIGHT WITHIN REACH.
[2016-10-06 00:13] VITALS: BP 132/38
--- NOTE | 2016-10-06 01:50 | NUR ---
HEART RATE'S 47/MIN:SINUS BRADYCARDIA:PER MONITOR,WOKE PT UP AND HE STATED THAT"I'M OK,PLEASE LET'S ME SLEEP.DON'T WAKE ME UP";EDUCATED TO PT DUE TO SLOW HEART RATE;PT VERBALIZED UNDERSTANDING AND COOPERATIVE,STILL ON IVF:NSS @ 50 ML/HR.CONTINUED MONITORING TO PT.BED ALARM'S ON.
[2016-10-06 04:28] VITALS: BP 111/49
--- NOTE | 2016-10-06 06:15 | NUR ---
ASSISTED PT FOR AM CARE AT THE BEDSIDE;PT'S COOPERATIVE W/ASSISTANCE.NO DISTRESS NOTED IN THE SHIFT,PT SLEPT FOR 5 HOURS DURING OF THE NIGHT.MAINTAINED IVF ORDER.KEPT CALL-LIGHT WITHIN REACH.BED ALARM'S ON.
[2016-10-06 07:03] LABS: CARBON DIOXIDE 23 mmol/L (21-32); CHLORIDE 106 mmol/L (98-107); CREATININE 3.1 mg/dL (0.6-1.3); GLUCOSE 95 mg/dL (74-106); MAGNESIUM 2.2 mg/dL (1.8-2.4); POTASSIUM 5.7 mmol/L (3.5-5.1); UREA NITROGEN, BLOOD 67 mg/dL (7-18)
[2016-10-06 07:14] LABS: THYROID STIMULATING HORMONE 2.942 mIU/mL (0.358-3.740)
--- NOTE | 2016-10-06 07:15 | NUR ---
RECEIVED REPORT FROM BRAKE LINING DRILLER NURSE. PATIENT IN BED SLEEPING, NO EVIDENCE OF DISTRESS NOTED. NO SOB, NO SIGNS OF PAIN OBSERVED. BED IN LOW POSITION, SIDE RAILS UP X2.
[2016-10-06 07:27] LABS: BASOPHILS # (AUTO) 0.1 K/uL (0.0-8.0); BASOPHILS % (AUTO) 1.1 % (0.0-2.0); EOSINOPHILS # (AUTO) 0.2 K/uL (0.0-0.7); EOSINOPHILS % (AUTO) 2.5 % (0.0-7.0); HEMATOCRIT 24.2 % (40-50); HEMOGLOBIN 8.1 G/DL (14.0-18.0); LYMPHOCYTES # (AUTO) 1.7 K/UL (0.8-4.8); LYMPHOCYTES % (AUTO) 20.5 % (20.5-51.5); MEAN CORPUSCULAR HEMOGLOBIN 29.3 UUG (27.0-31.0); MEAN CORPUSCULAR HGB CONC 33 g/dL (32.0-37.0); MONOCYTES % (AUTO) 11.4 % (0.0-11.0); NEUTROPHILS # (AUTO) 5.4 K/UL (1.8-8.9); NEUTROPHILS % (AUTO) 64.5 % (38.5-71.5); PLATELET COUNT (AUTO) 62 K/UL (150-450); RED BLOOD CELL COUNT(AUTO) 2.75 MIL/UL (4.7-6.1); WHITE BLOOD COUNT (AUTO) 8.4 K/UL (4.0-11.2)
[2016-10-06] MEDS: CARVEDILOL 6.25 MG TABLET PO SCH ×2 (09:00→17:00)
[2016-10-06] MEDS: ASPIRIN EC 81 MG TABLET.DR PO SCH (09:08)
[2016-10-06] MEDS: MULTIVITAMINS,THERAPEUTIC TABLET PO SCH (09:08)
[2016-10-06] MEDS: CYANOCOBALAMIN 1,000 MCG TABLET PO SCH (09:18)
[2016-10-06] MEDS: SULFAMETH/TRIMETH 800/160 MG TABLET PO SCH ×2 (09:18→17:34)
[2016-10-06] MEDS: OMEGA-3 FATTY ACIDS/FISH OIL CAPSULE PO SCH (09:18)
[2016-10-06] MEDS: BENAZEPRIL HCL 20 MG TABLET PO SCH (09:18)
[2016-10-06] MEDS: AMLODIPINE 5 MG TABLET PO SCH (09:19)
[2016-10-06] MEDS: ASCORBIC ACID 500 MG TABLET PO SCH (09:19)
[2016-10-06] MEDS: CHOLECALCIFEROL 1,000 UNIT TABLET PO SCH (09:20)
[2016-10-06] MEDS: CLOPIDOGREL 75 MG TABLET PO SCH (09:20)
[2016-10-06 09:37] LABS: BAND % (MANUAL) 1 % (0-10); BASOPHILS % (MANUAL) 1 % (0-2); EOSINOPHILS % (MANUAL) 2 % (0-8); LYMPHOCYTES % (MANUAL) 23 % (20-40); MONOCYTES % (MANUAL) 8 % (2-10); NEUTROPHILS % (MANUAL) 65 % (42-75)
[2016-10-06 11:12] VITALS: BP 160/100
[2016-10-06 15:11] VITALS: BP 163/83
--- NOTE | 2016-10-06 17:40 | NUR ---
PATIENT WAS SEEN BY DR PINTO AND WOUND CULTURE WAS OBTAINED. WOUND WAS LEFT OPEN TO AIR WITH NO OTHER WOUND CARE ORDERS.
--- NOTE | 2016-10-06 18:19 | NUR ---
PATIENT IN BED INTERMITTENTLY SLEEPING. PATIENT HAS BEEN AGITATED THAT HE IS IN THE HOSPITAL AND NOT BEING TREATED. PATIENT WAS REMINDED THAT DR LION VISITED HIS ROOM FIRST THING THIS MORNING. PATIENT IS IN NO DISTRESS BESIDES NOT LIKING THE MEAL OPTIONS. OFFERED HIM DINNER THAT SHE ORDERED, AND PATIENT WAS SATISFIED.
[2016-10-06] MEDS: IV NS 1000 ML 1,000 ML IV PRN (18:43)
--- NOTE | 2016-10-06 19:00 | NUR ---
RECEIVED PATIENT IN BED, ALERT, ORIENTED, RYTHM IS SINUS REHAN WITH BBB, NO SOB NO CHEST PAIN, CALL LIGHT WITHIN REACH. CONT TO MONITOR.
[2016-10-06 20:00] VITALS: BP 145/83
[2016-10-06] MEDS: ATORVASTATIN 40 MG TABLET PO SCH (21:08)
[2016-10-06] MEDS: MUPIROCIN 2% OINT 22 GM TUBE TP SCH (21:19)
[2016-10-07] VITALS: BP 131/77
[2016-10-07 04:00] VITALS: BP 130/53
--- NOTE | 2016-10-07 05:55 | NUR ---
PATIENT SLEPT MOST OF THE NIGHT, NO SOB NO CHEST PAIN NOTED, RYTHM SINUS REHAN WITH BBB, CONT TO MONITOR.
[2016-10-07] MEDS: ASPIRIN EC 81 MG TABLET.DR PO SCH (08:35)
[2016-10-07] MEDS: CYANOCOBALAMIN 1,000 MCG TABLET PO SCH (08:36)
[2016-10-07] MEDS: MULTIVITAMINS,THERAPEUTIC TABLET PO SCH (08:36)
[2016-10-07] MEDS: ASCORBIC ACID 500 MG TABLET PO SCH (08:36)
[2016-10-07] MEDS: OMEGA-3 FATTY ACIDS/FISH OIL CAPSULE PO SCH (08:36)
[2016-10-07] MEDS: SULFAMETH/TRIMETH 800/160 MG TABLET PO SCH ×2 (08:36→16:24)
[2016-10-07] MEDS: CLOPIDOGREL 75 MG TABLET PO SCH (08:36)
[2016-10-07] MEDS: CHOLECALCIFEROL 1,000 UNIT TABLET PO SCH (08:36)
[2016-10-07] MEDS: BENAZEPRIL HCL 20 MG TABLET PO SCH (08:37)
[2016-10-07] MEDS: CARVEDILOL 6.25 MG TABLET PO SCH ×2 (08:37→16:25)
[2016-10-07] MEDS: AMLODIPINE 5 MG TABLET PO SCH (08:37)
[2016-10-07] MEDS: MUPIROCIN 2% OINT 22 GM TUBE TP SCH (08:40)
[2016-10-07] MEDS ORDERED: CLOTRIMAZOLE 1% CREAM 30 GM TUBE TOP SCH (09:00)
[2016-10-07 11:11] VITALS: BP 149/75
--- NOTE | 2016-10-07 12:00 | NUR ---
PATIENT IS FOR DISCHARGE TO [facility] TODAY PATIENT AWARE AWAITING FOR THE HYPOID GEAR TESTER TO [facility] FROM THE FACILITY.
--- NOTE | 2016-10-07 13:30 | NUR ---
PER THE CASE HERNAN ITS OKAY FOR PATIENT TO BE TRANSF[facility].CALLED THE MED RESPONSE BACKED UP UNABLE TO GIVE US A TIME WILL CALL BACK TO GIVE US THE PICK NUP TIME.
[2016-10-07 15:23] VITALS: BP 145/65
--- NOTE | 2016-10-07 15:47 | NUR ---
CALLED [facility] AND GAVE REPORT TO SABRINA AWAITING FOR MED RESPONSE TO CALL FREDDY CASTILLO.
--- NOTE | 2016-10-07 15:52 | NUR ---
Consult order placed as patient not happy with food. Per diet aid,pt refused menu selection,and had no c/o about food. Food preferences obtained. Per case mgr ,patient will transfer to [facility] today. Tolerating current diet,po intake has been improving, eating 75-100% of meals. Addendum: 10/07/16 at [address] Amended: Links added.
[2016-10-07 16:25] VITALS: BP 139/67
--- NOTE | 2016-10-07 17:05 | NUR ---
Discharge Plan: The patient will be discharged today to [facility] [ ; [address] [place] [address]] via [facility]. Spoke with his who is in agreement with the discharge plan. Spoke to Elisa from [facility] and she confirmed that they will admit the patient today.
--- NOTE | 2016-10-07 18:05 | NUR ---
PATIENT DISCHARGED TO [facility] PICKED UP BY THE MED RESPONSE IN SATISFACTORY CONDITION WITH DISCHARGE INSTRUCTIONS AND WEARING A RING AND A WATCH.PATIENTS TOOK ALL OF HIS OTHER PERSONAL BELONGINGS.
== END 2016-10-07 18:05 | DRG 73 ==
LOC: ER 11:11 → MED 16:09 → TELE 16:48
PROVIDERS: ADMIT Internal Medicine; ATTEND Internal Medicine
DX: G90.8 Other disorders of autonomic nervous system (principal); I50.33 Acute on chronic diastolic (congestive) heart failure; N17.9 Acute kidney failure, unspecified; E44.0 Moderate protein-calorie malnutrition; L03.116 Cellulitis of left lower limb; I13.0 Hypertensive heart and chronic kidney disease with heart failure and stage 1 through stage 4 chronic kidney disease, or unspecified chronic kidney disease; L97.421 Non-pressure chronic ulcer of left heel and midfoot limited to breakdown of skin; N18.9 Chronic kidney disease, unspecified; I25.10 Atherosclerotic heart disease of native coronary artery without angina pectoris; I83.024 Varicose veins of left lower extremity with ulcer of heel and midfoot; Z95.1 Presence of aortocoronary bypass graft; Z79.02 Long term (current) use of antithrombotics/antiplatelets; Z79.899 Other long term (current) drug therapy; Z79.82 Long term (current) use of aspirin; Z68.21 Body mass index [BMI] 21.0-21.9, adult; I25.2 Old myocardial infarction; E78.5 Hyperlipidemia, unspecified; Z91.11 Patient's noncompliance with dietary regimen; D63.8 Anemia in other chronic diseases classified elsewhere; T81.89XD Other complications of procedures, not elsewhere classified, subsequent encounter; L90.9 Atrophic disorder of skin, unspecified; Z98.61 Coronary angioplasty status; D50.0 Iron deficiency anemia secondary to blood loss (chronic)
CPT/HCPCS: 36415; 70030-TC; 71010; 83605; 83735; 84443; 85025; 85730; 87040; 93005; A4663; J2270; J2405; J7030

== ENCOUNTER 2016-11-09 16:38 | Inpatient (IN) | payer MEDICARE, BC ==
[~2016-11-09] VITALS: Ht 182.9 cm; Wt 69.4 kg
[~2016-11-09 16:38] MED LIST changes: -CYAN100085 PO; -FISH1CAP16 PO; +OMEG1CAP74 PO; -SIMV80TA5 PO
[2016-11-09] MEDS ORDERED: [UNRECOGNIZED DRUG - OTHER] PO (16:50)
[2016-11-09 17:30] LABS: BASOPHILS % (AUTO) 0.8 % (0.0-2.0); EOSINOPHILS # (AUTO) 0.3 K/uL (0.0-0.7); EOSINOPHILS % (AUTO) 5.2 % (0.0-7.0); LYMPHOCYTES # (AUTO) 2.4 K/UL (0.8-4.8); LYMPHOCYTES % (AUTO) 39.5 % (20.5-51.5); MEAN CORPUSCULAR HGB CONC 33 g/dL (32.0-37.0); MONOCYTES # (AUTO) 0.4 K/UL (0.1-1.30); MONOCYTES % (AUTO) 6.4 % (0.0-11.0); NEUTROPHILS % (AUTO) 48.1 % (38.5-71.5); PLATELET COUNT (AUTO) 64 K/UL (150-450); WHITE BLOOD COUNT (AUTO) 6.1 K/UL (4.0-11.2)
[2016-11-09 17:35] LABS: CARBON DIOXIDE 22 mmol/L (21-32); CHLORIDE 107 mmol/L (98-107); CREATININE 1.5 mg/dL (0.6-1.3); GLUCOSE 106 mg/dL (74-106); POTASSIUM 5.3 mmol/L (3.5-5.1); UREA NITROGEN, BLOOD 38 mg/dL (7-18)
[2016-11-09 17:37] LABS: HEMOGLOBIN 6.8 G/DL (14.0-18.0); RED BLOOD CELL COUNT(AUTO) 2.34 MIL/UL (4.7-6.1)
[2016-11-09 17:38] LABS: HEMATOCRIT 20.8 % (40-50)
[2016-11-09 17:41] LABS: ALANINE AMINOTRANSFERASE 16 U/L (16-63); ALKALINE PHOSPHATASE 104 U/L (50-136); ASPARTATE AMINOTRANSFERASE 17 U/L (15-37); BILIRUBIN,DIRECT 0.1 mg/dL (0.0-0.2); BILIRUBIN,TOTAL 0.5 mg/dL (0.2-1.0); TOTAL PROTEIN, SERUM 7.4 g/dL (6.4-8.2)
[2016-11-09 17:44] LABS: IRON, SERUM 121 ug/dL (50-175)
[2016-11-09 18:09] LABS: BAND % (MANUAL) 3 % (0-10); EOSINOPHILS % (MANUAL) 6 % (0-8); LYMPHOCYTES % (MANUAL) 40 % (20-40); MONOCYTES % (MANUAL) 7 % (2-10); NEUTROPHILS % (MANUAL) 44 % (42-75)
--- NOTE | 2016-11-09 18:39 | NUR ---
PT TRANSFERED FLOOR IN STABLE CONDITION.
--- NOTE | 2016-11-09 18:55 | NUR ---
ADMITTED PATIENT IN TELE UNIT UNDER THE CARE OF DR AHUMADA, BELONG LIST DONE. OBTAINED CONSENT FOR BLOOD TRANSFUSION. AT BED SIDE.
[2016-11-09 19:05] VITALS: BP 172/59
[2016-11-09 20:31] VITALS: BP_SYST 155; BP_DIAS 41; BP_DIAS 69
[2016-11-09 22:22] VITALS: BP 156/64
[2016-11-09 22:37] VITALS: BP 152/46
--- NOTE | 2016-11-09 22:40 | NUR ---
STARTED BLOOD TRANSFUSION WITH NO ADVERSE REACTION NOTED, AFEBRILE CONT TO MONITOR.
[2016-11-09 23:07] VITALS: BP 115/91
[2016-11-09 23:37] VITALS: BP 142/60
--- NOTE | 2016-11-10 00:56 | NUR ---
BLOOD TRANSFUSION DONE, WITH NO ADVERSE REACTION NOTED, NO SOB NO CHEST PAIN, NO CONGESTION NOTED, TOLERATE WELL. CONT TO MONITOR.
[2016-11-10 00:59] VITALS: BP 112/68
[2016-11-10 04:00] VITALS: BP 165/50
--- NOTE | 2016-11-10 04:31 | NUR ---
PATIENT SLEPT MOST OF THE NIGHT, NO SOB NO CHEST PAIN, CONTINENT OF BOWEL AND BLADDER, NO COMPLAIN OF PAIN, AT THIS TIME. CONT TO MONITOR.
[2016-11-10 06:27] LABS: CARBON DIOXIDE 23 mmol/L (21-32); CHLORIDE 110 mmol/L (98-107); CHOLESTEROL 95 mg/dL (<200); CREATININE 1.4 mg/dL (0.6-1.3); GLUCOSE 86 mg/dL (74-106); HDL CHOLESTEROL 42 mg/dL (40-60); MAGNESIUM 1.7 mg/dL (1.8-2.4); POTASSIUM 4.8 mmol/L (3.5-5.1); TRIGLYCERIDES 58 MG/DL (30-150); UREA NITROGEN, BLOOD 32 mg/dL (7-18)
--- NOTE | 2016-11-10 07:09 | NUR ---
PATIENT HAS A SCAR ON LEFT LEFT. PICTURES TAKEN AND PLACED IN CHART. PATIENT HAS ULCER ON LEFT FOOT. PICTURE TAKEN AND PLACED IN CHART.
--- NOTE | 2016-11-10 07:10 | NUR ---
RECEIVED REPORT FROM PLANT OPERATIONS WORKER NURSE. PATIENT IN BED ASLEEP, NO EVIDENCE OF DISTRESS NOTED, BED IN LOW POSITION, SIDE RAILS UP X2.
[2016-11-10 07:18] LABS: BASOPHILS # (AUTO) 0.1 K/uL (0.0-8.0); BASOPHILS % (AUTO) 2.2 % (0.0-2.0); EOSINOPHILS # (AUTO) 0.2 K/uL (0.0-0.7); LYMPHOCYTES # (AUTO) 1.9 K/uL (20.0-40.0); LYMPHOCYTES % (AUTO) 40.4 % (20.5-51.5); MEAN CORPUSCULAR HEMOGLOBIN 32.2 uug (23.8-33.4); MEAN CORPUSCULAR HGB CONC 36 g/dL (32.5-36.3); MEAN CORPUSCULAR VOLUME 89.4 fL (73.0-96.2); MONOCYTES # (AUTO) 0.5 K/uL (2.0-10.0); MONOCYTES % (AUTO) 10.6 % (0.0-11.0); NEUTROPHILS % (AUTO) 41.8 % (38.5-71.5); WHITE BLOOD COUNT (AUTO) 4.8 K/uL (3.6-10.2)
[2016-11-10 07:24] LABS: HEMATOCRIT 20.6 % (36.7-47.1); HEMOGLOBIN 7.4 g/dL (12.5-16.3)
[2016-11-10 07:32] LABS: PLATELET COUNT (AUTO) 57 K/uL (152-348)
[2016-11-10 09:52] LABS: BASOPHILS % (MANUAL) 1 % (0-2); EOSINOPHILS % (MANUAL) 4 % (0-8); LYMPHOCYTES % (MANUAL) 46 % (20-40); MONOCYTES % (MANUAL) 6 % (2-10); NEUTROPHILS % (MANUAL) 42 % (42-75)
[2016-11-10 09:58] LABS: REACTIVE LYMPHOCYTES 1 % (0-0)
[2016-11-10 11:02] VITALS: BP 154/51
[2016-11-10 14:57] VITALS: BP 113/47
--- NOTE | 2016-11-10 16:39 | NUR ---
PATIENT WAS DISCHARGED, IV REMOVED, TELEMETRY REMOVED, AND PATIENT WAS WHEELED DOWN TO FRONT OF BUILDING WHERE HE IS BEING MET BY .
== END 2016-11-10 16:40 | disposition home or self-care (01) | DRG 291 ==
LOC: ER 16:39 → TELE 18:33
PROVIDERS: ADMIT Internal Medicine Nephrology; ATTEND Internal Medicine Nephrology
PROC: 30233N1 Transfusion of Nonautologous Red Blood Cells into Peripheral Vein, Percutaneous Approach (ICD-10-PCS; principal; 2016-11-09)
DX: I13.0 Hypertensive heart and chronic kidney disease with heart failure and stage 1 through stage 4 chronic kidney disease, or unspecified chronic kidney disease (principal); N17.0 Acute kidney failure with tubular necrosis; G93.40 Encephalopathy, unspecified; E44.0 Moderate protein-calorie malnutrition; D61.818 Other pancytopenia; E87.5 Hyperkalemia; T14.8 Other injury of unspecified body region; D63.1 Anemia in chronic kidney disease; I50.9 Heart failure, unspecified; E78.5 Hyperlipidemia, unspecified; I25.10 Atherosclerotic heart disease of native coronary artery without angina pectoris; I73.9 Peripheral vascular disease, unspecified; N18.9 Chronic kidney disease, unspecified; Z95.1 Presence of aortocoronary bypass graft; I25.2 Old myocardial infarction; Z68.20 Body mass index [BMI] 20.0-20.9, adult; X58.XXXA Exposure to other specified factors, initial encounter; Y92.009 Unspecified place in unspecified non-institutional (private) residence as the place of occurrence of the external cause
CPT/HCPCS: 36415; 83550; 83735; 84100; 85025; 85730; 86850; 86900; 86901; 86920; A4663; J7040; P9016-BL; P9021

== ENCOUNTER 2016-11-21 03:41 | Inpatient (IN) | payer MEDICARE, BC ==
[~2016-11-21] VITALS: Ht 175.3 cm; Wt 72.1 kg
[~2016-11-21 03:41] MED LIST changes: -SULF1TAB48 PO; +[UNRECOGNIZED DRUG - OTHER] PO
--- NOTE | 2016-11-21 03:59 | NUR ---
Pt biba from home for sob/resp distress. Pt arrived on a bipap type mask on high flow O2 sats in the low 90's. Pt tachypnic, unable to speak full sentences, answering in one word. Pt ST on the monitor. Dr. Kendrick and RT at bedside. IV established, labs drawn and sent. CXR at bedside.
[2016-11-21 04:00] VITALS: BP 126/41
[2016-11-21 04:14] LABS: BASOPHILS % (AUTO) 0.1 % (0.0-2.0); EOSINOPHILS # (AUTO) 0.4 K/uL (0.0-0.7); EOSINOPHILS % (AUTO) 1.6 % (0.0-7.0); HEMATOCRIT 26.7 % (40-50); HEMOGLOBIN 8.7 G/DL (14.0-18.0); LYMPHOCYTES # (AUTO) 2.7 K/UL (0.8-4.8); LYMPHOCYTES % (AUTO) 11.5 % (20.5-51.5); MEAN CORPUSCULAR HGB CONC 33 g/dL (32.0-37.0); MEAN CORPUSCULAR VOLUME 91.5 FL (82.0-92.0); MONOCYTES # (AUTO) 0.9 K/UL (0.1-1.30); MONOCYTES % (AUTO) 3.9 % (0.0-11.0); NEUTROPHILS # (AUTO) 19.5 K/UL (1.8-8.9); NEUTROPHILS % (AUTO) 82.9 % (38.5-71.5); PLATELET COUNT (AUTO) 67 K/UL (150-450); RED BLOOD CELL COUNT(AUTO) 2.91 MIL/UL (4.7-6.1); WHITE BLOOD COUNT (AUTO) 23.5 K/UL (4.0-11.2)
[2016-11-21] MEDS ORDERED: LEVOFLOXACIN 750 MG/D5W 150 ML PIGGYBACK IV ONE (04:15)
[2016-11-21 04:19] LABS: *BILIRUBIN,URIN NEGATIVE (NEGATIVE); *BLOOD, URINE NEGATIVE (NEGATIVE); *CLARITY,URINE CLEAR (CLEAR); *COLOR,URINE YELLOW (YELLOW); *KETONES,URINE NEGATIVE (NEGATIVE); *PROTEIN,URINE 2+ (NEGATIVE); *UROBILINOGEN,URINE 0.2 E.U./dl (NORMAL); LEUKOCYTE ESTERASE ,URINE NEGATIVE (NEGATIVE); NITRITE, URINE NEGATIVE (NEGATIVE); PH,URINE 5.5 (5.0-8.0); UGLUCOSE NEGATIVE (NEGATIVE)
[2016-11-21 04:20] LABS: ABG BASE EXCESS -6.9 mmol/L; ABG HCO3 20.1 mmol/L; ABG PCO2 47.7 mmHg (35.0-45.0); ABG PH 7.243 (7.350-7.450); ABG PO2 119.9 mmHg (75.0-100.0); ABG SITE LEFT RADIAL; ABG TOTAL HEMOGLOBIN 9.1 G/dL (13.5-18.0); COHb 0.7 % (0.5-1.5); MetHb 0.6 % (0.0-1.5); O2Hb 96.6 % (94.0-97.0)
[2016-11-21 04:20] LABS: CARBON DIOXIDE 27 mmol/L (21-32); CHLORIDE 108 mmol/L (98-107); CREATININE 1.8 mg/dL (0.6-1.3); GLUCOSE 145 mg/dL (74-106); POTASSIUM 5.5 mmol/L (3.5-5.1); UREA NITROGEN, BLOOD 34 mg/dL (7-18)
[2016-11-21] MEDS ORDERED: IPRATROPIUM BROMIDE 0.5 MG/2.5 ML NEBU NEB ONE (04:30)
[2016-11-21] MEDS ORDERED: ALBUTEROL SULFATE 2.5 MG/3 ML NEBU NEB ONE (04:30)
[2016-11-21 04:33] LABS: ALANINE AMINOTRANSFERASE 23 U/L (16-63); ALKALINE PHOSPHATASE 90 U/L (50-136); ASPARTATE AMINOTRANSFERASE 19 U/L (15-37); BILIRUBIN,DIRECT 0.2 mg/dL (0.0-0.2); BILIRUBIN,TOTAL 0.7 mg/dL (0.2-1.0); TOTAL PROTEIN, SERUM 7.4 g/dL (6.4-8.2)
[2016-11-21] MEDS ORDERED: PIPERACILLIN/TAZO 4.5 GM VIAL IV ONE (04:33)
[2016-11-21 04:35] LABS: BACTERIA,URINE NONE SEEN /HPF (NONE SEEN); RBC,URINE NONE SEEN /HPF (0-3); SQUAMOUS EPITHELIAL CELL,UR FEW /HPF (NONE SEEN); WBC,URINE 0-3 /HPF (0-3)
--- NOTE | 2016-11-21 04:36 | NUR ---
Eddie on called paged by Dr. Kendrick
[2016-11-21] MEDS ORDERED: IPRATROPIUM BROMIDE 0.5 MG/2.5 ML NEBU ONE (04:42)
[2016-11-21] MEDS ORDERED: ALBUTEROL SULFATE 2.5 MG/3 ML NEBU ONE (04:42)
--- NOTE | 2016-11-21 04:50 | NUR ---
First ABT infusion started, will monitor for any adverse reactions.
[2016-11-21] MEDS ORDERED: LEVOFLOXACIN 750MG/D5W 150 ML IV ONE (05:07)
--- NOTE | 2016-11-21 05:29 | NUR ---
First ABT infusion completed, no adverse reactions noted. Second ABT infusion started, will monitor for any adverse reactions. Pt resting in position of comfort for self. Resp even and unlabored, remains tachypnic. Resp distress improving. Pt remains on NRB to maintain O2 sats> 95%
--- NOTE | 2016-11-21 05:37 | NUR ---
Report called to ELKE Maguire. Preparing to transfer pt to the floor.
[2016-11-21] MEDS ORDERED: PIPERACILLIN SODIUM/TAZOBACTAM 4.5 G in IV DEXTROSE 5% 50 ML IV SCH (06:00)
--- NOTE | 2016-11-21 07:10 | NUR ---
received report from manufacturing supervisor 2nd shift nurse, patient in bed awake, non-rebreather mask on saturation level is 100%. Patient is in no distress at this time, bed alarm on, side rails up x2, bed in low position.
[2016-11-21] MEDS ORDERED: ENOXAPARIN SODIUM 30 MG/0.3 ML DISP.SYRIN SUBCUT SCH (08:45)
[2016-11-21] MEDS ORDERED: SODIUM BICARBONATE 8.4% 50 MEQ in IV 1/2NS 1000 ML 1,000 ML IV PRN (08:45)
[2016-11-21] MEDS: ASPIRIN EC 81 MG TABLET.DR PO SCH (10:05)
[2016-11-21] MEDS: CARVEDILOL 6.25 MG TABLET PO SCH ×2 (10:05→18:00)
[2016-11-21] MEDS: CLOPIDOGREL 75 MG TABLET PO SCH (10:05)
[2016-11-21] MEDS: CYANOCOBALAMIN 1,000 MCG TABLET PO SCH (10:06)
[2016-11-21 10:29] LABS: EOSINOPHILS % (MANUAL) 8 % (0-8); LYMPHOCYTES % (MANUAL) 17 % (20-40); MONOCYTES % (MANUAL) 5 % (2-10); NEUTROPHILS % (MANUAL) 76 % (42-75)
[2016-11-21 12:00] VITALS: BP 114/38
[2016-11-21] MEDS: PIPERACILLIN/TAZOBACTAM/D5W 2.25 G in PREMIXED 1 EACH IV SCH ×2 (13:48→21:02)
--- NOTE | 2016-11-21 14:10 | NUR ---
WOUND CARE CONSULT: PT PRESENTS WITH HEALING WOUND TO LEFT FOOT PRESENT ON ADMISSION. ORDERS RECEIVED FROM DR ULLOA AND DISCUSSED WITH NURSING STAFF. PT IS CONTINENT AND AMBULATORY. CURRENT NANDO SCORE IS 21. ALL SKIN PROTECTION MEASURES IN PLACE. WILL SEE PRN. WELCH IN AGREEMENT WITH PLAN OF CARE. Addendum: 11/21/16 at 1414 by BETTE HORNE RN Amended: Links added.
[2016-11-21] MEDS ORDERED: HOME MED MISCELLANEOUS XX SCH (14:15)
[2016-11-21] MEDS: IV 1/2NS 1000 ML 1,000 ML IV PRN ×2 (15:36→16:36)
[2016-11-21 16:08] VITALS: BP 120/46
[2016-11-21] MEDS ORDERED: MINERAL OIL/PETROLATUM,WHITE 57 GM TUBE TOP PRN (17:45)
--- NOTE | 2016-11-21 18:42 | NUR ---
Patient was weened off of the non-rebreather mask, patient is currently on 2L oxygen, tolerating well oxygen saturation is 94%. Patient started complaining of pain in left lower extremity, called and reported to Dr. Baker. Order for Norco5/325 placed for PRN pain q6hr.
[2016-11-21] MEDS ORDERED: HYDROCODONE/APAP 5-325MG TABLET PO PRN (18:45)
--- NOTE | 2016-11-21 19:30 | NUR ---
nsg: pt received a/o x 4, in bed. no acute distress noted. on 2.5L O2 via nc saturating at 97%. lungs sound diminished to auscultate. tele, SR with 1st degree av block and bbb. on cont ivf. cont with treatment plan.
[2016-11-21] MEDS: IPRATROPIUM BROMIDE 0.5 MG/2.5 ML NEBU NEB SCH (19:45)
[2016-11-21] MEDS: ALBUTEROL SULFATE 2.5 MG/3 ML NEBU NEB SCH (19:45)
[2016-11-21 20:00] VITALS: BP 122/47
--- NOTE | 2016-11-21 20:25 | NUR ---
CLINICAL PHARMACY NOTE:VANCOMYCIN DOSING Request for vancomycin dosing on 86 y/o male 5'9" 185lbs for pneumonia Temp 99.3 BUN 34 Scr 1.8 WBC 23.5 also on Levaquin and Zosyn Give vancomycin 1250mg ivpb tonight will dose by levels due to decrease renal function. Random vancomycin level ordered for 1800 tomorrow.
[2016-11-21] MEDS: ATORVASTATIN 40 MG TABLET PO SCH (20:54)
[2016-11-21] MEDS ORDERED: VANCOMYCIN IV 1,250 MG in IV DEXTROSE 5% 500 ML IV ONE (23:00)
[2016-11-22] VITALS: BP 118/52
--- NOTE | 2016-11-22 | NUR ---
nsg: no acute distress noted. no change in condition.
[2016-11-22 04:00] VITALS: BP 125/49
[2016-11-22] MEDS ORDERED: LEVOFLOXACIN 750MG/D5W 750 MG in PREMIXED 1 EACH IV SCH (05:00)
[2016-11-22] MEDS: PIPERACILLIN/TAZOBACTAM/D5W 2.25 G in PREMIXED 1 EACH IV SCH ×3 (05:49→21:31)
--- NOTE | 2016-11-22 06:00 | NUR ---
nsg: pt comfortable sleeping. no acute distress noted.
[2016-11-22] MEDS: PANTOPRAZOLE SODIUM 40 MG TABLET.DR PO SCH (06:38)
[2016-11-22 07:48] LABS: ALANINE AMINOTRANSFERASE 14 U/L (16-63); ALKALINE PHOSPHATASE 57 U/L (50-136); ASPARTATE AMINOTRANSFERASE 16 U/L (15-37); CARBON DIOXIDE 23 mmol/L (21-32); CHLORIDE 106 mmol/L (98-107); CREATININE 1.8 mg/dL (0.6-1.3); GLUCOSE 98 mg/dL (74-106); POTASSIUM 4.6 mmol/L (3.5-5.1); TOTAL PROTEIN, SERUM 5.8 g/dL (6.4-8.2); UREA NITROGEN, BLOOD 39 mg/dL (7-18)
[2016-11-22] MEDS: CARVEDILOL 6.25 MG TABLET PO SCH ×2 (08:00→18:28)
[2016-11-22] MEDS: ASPIRIN EC 81 MG TABLET.DR PO SCH (08:06)
[2016-11-22] MEDS: CYANOCOBALAMIN 1,000 MCG TABLET PO SCH (08:06)
[2016-11-22] MEDS: CLOPIDOGREL 75 MG TABLET PO SCH (08:06)
[2016-11-22] MEDS: MINERAL OIL/PETROLATUM,WHITE 57 GM TUBE TOP SCH (08:07)
[2016-11-22 08:12] LABS: EOSINOPHILS # (AUTO) 0.1 K/uL (0.0-0.7); EOSINOPHILS % (AUTO) 0.7 % (0.0-7.0); HEMOGLOBIN 7.3 G/DL (14.0-18.0); LYMPHOCYTES # (AUTO) 1.4 K/UL (0.8-4.8); LYMPHOCYTES % (AUTO) 6.6 % (20.5-51.5); MEAN CORPUSCULAR HEMOGLOBIN 29.9 UUG (27.0-31.0); MEAN CORPUSCULAR HGB CONC 33 g/dL (32.0-37.0); MEAN CORPUSCULAR VOLUME 90.8 FL (82.0-92.0); MONOCYTES # (AUTO) 1.7 K/UL (0.1-1.30); MONOCYTES % (AUTO) 7.8 % (0.0-11.0); NEUTROPHILS # (AUTO) 18.2 K/UL (1.8-8.9); NEUTROPHILS % (AUTO) 84.9 % (38.5-71.5); PLATELET COUNT (AUTO) 52 K/UL (150-450); WHITE BLOOD COUNT (AUTO) 21.4 K/UL (4.0-11.2)
[2016-11-22 08:17] LABS: HEMATOCRIT 22.1 % (40-50); RED BLOOD CELL COUNT(AUTO) 2.44 MIL/UL (4.7-6.1)
[2016-11-22 08:57] LABS: ABG BASE EXCESS -5.2 mmol/L; ABG HCO3 19.4 mmol/L; ABG PCO2 33.7 mmHg (35.0-45.0); ABG PH 7.378 (7.350-7.450); ABG PO2 52.3 mmHg (75.0-100.0); ABG SITE LEFT RADIAL; ABG TOTAL HEMOGLOBIN 7.2 G/dL (13.5-18.0); MetHb 0.9 % (0.0-1.5); O2Hb 83.8 % (94.0-97.0); VENT MODE Room Air
[2016-11-22 09:54] LABS: BAND % (MANUAL) 9 % (0-10); LYMPHOCYTES % (MANUAL) 11 % (20-40); MONOCYTES % (MANUAL) 4 % (2-10); NEUTROPHILS % (MANUAL) 76 % (42-75)
[2016-11-22] MEDS: SANTYL OINTMENT TOP SCH (10:40)
[2016-11-22] MEDS: ALBUTEROL SULFATE 2.5 MG/3 ML NEBU NEB SCH ×3 (11:43→19:33)
[2016-11-22] MEDS: IPRATROPIUM BROMIDE 0.5 MG/2.5 ML NEBU NEB SCH ×3 (11:43→19:33)
[2016-11-22 11:48] VITALS: BP 137/52
--- NOTE | 2016-11-22 13:59 | NUR ---
Dr. Ritchie requested that patient
--- NOTE | 2016-11-22 14:23 | NUR ---
CLINICAL PHARMACY NOTE:VANCOMYCIN DOSING To continue vancomycin dosing on 86 y/o male 5'9" 185lbs for pneumonia Objective: height 5'9'' weight 185 lbs Temp 98.2 BUN 39 Scr 1.8 WBC 21.4 Give vancomycin 1250mg ivpb tonight will dose by levels due to decrease renal function. Random vancomycin level ordered for 1800 tomorrow. Addendum: 11/22/16 at 1426 by MAXIMILIANO CASEY ADM NOTE: DISREGARD NOTE, INCOMPLETE. REENTERED
--- NOTE | 2016-11-22 14:24 | NUR ---
CLINICAL PHARMACY NOTE:VANCOMYCIN DOSING Note: disregard previous note (not finished) Subjective: To continue vancomycin dosing on 86 y/o male for pneumonia Objective: height 5'9'' weight 185 lbs Temp 98.2 BUN 39 Scr 1.8 WBC 21.4 Random pending today at 1800 Assessment/Plan Due to age and renal function, will dose by fall off level for now. vancomycin 1250mg ivpb given yesterday at 2300. Next random level ordered for tonight at 1800. Will check level and re-dose as appropriate. Will continue to monitor Addendum: 11/22/16 at 2057 by NORTH BELLO ADM VANCOMYCIN RANDOM LEVEL CAME BACK @ 10.3 WILL GIVE ANOTHER VANCOMYCIN DOSE OF 1500 MG X 1 (~17 MG/KG)
[2016-11-22 16:00] VITALS: BP 125/46
[2016-11-22 16:04] LABS: BASOPHILS % (AUTO) 0.1 % (0.0-2.0); EOSINOPHILS # (AUTO) 0.2 K/uL (0.0-0.7); EOSINOPHILS % (AUTO) 1.2 % (0.0-7.0); LYMPHOCYTES # (AUTO) 1.3 K/UL (0.8-4.8); LYMPHOCYTES % (AUTO) 7.8 % (20.5-51.5); MEAN CORPUSCULAR HEMOGLOBIN 29.5 UUG (27.0-31.0); MEAN CORPUSCULAR HGB CONC 32 g/dL (32.0-37.0); MEAN CORPUSCULAR VOLUME 91.2 FL (82.0-92.0); MONOCYTES # (AUTO) 1.5 K/UL (0.1-1.30); MONOCYTES % (AUTO) 8.8 % (0.0-11.0); NEUTROPHILS # (AUTO) 14.2 K/UL (1.8-8.9); NEUTROPHILS % (AUTO) 82.1 % (38.5-71.5); WHITE BLOOD COUNT (AUTO) 17.2 K/UL (4.0-11.2)
[2016-11-22 16:09] LABS: HEMATOCRIT 21.6 % (40-50); PLATELET COUNT (AUTO) 60 K/UL (150-450); RED BLOOD CELL COUNT(AUTO) 2.37 MIL/UL (4.7-6.1)
--- NOTE | 2016-11-22 16:32 | NUR ---
CALLED PLACED TO DR. LION WITH H/H RESULTS HGB 7.0, HCT 21.6.
--- NOTE | 2016-11-22 16:58 | NUR ---
CALL RECEIVED FROM DR. LION. NO NEW ORDERS AT THIS TIME.
[2016-11-22] MEDS: IV 1/2NS 1000 ML 1,000 ML IV PRN (18:28)
--- NOTE | 2016-11-22 18:48 | NUR ---
END OF SHIFT NOTE: PATIENT IN NO ACUTE DISTRESS THROUGHOUT SHIFT. DENIED PAIN. VSS. PATIENT INDEPENDENT WITH BED MOBILITY. NEEDS MET BY STAFF. IVF RUNNING.
[2016-11-22 19:20] LABS: BAND % (MANUAL) 8 % (0-10); EOSINOPHILS % (MANUAL) 2 % (0-8); LYMPHOCYTES % (MANUAL) 8 % (20-40); MONOCYTES % (MANUAL) 8 % (2-10); NEUTROPHILS % (MANUAL) 74 % (42-75)
--- NOTE | 2016-11-22 19:50 | NUR ---
Received pt in bed, awake alert and oriented watching TV. Verbally responsive and able to make needs known. Denies pain or discomfort at this time. L hand 20g IV running 1/2 NS at 75cc/hr. Denies SOB. Breathing even and unlabored. 3L O2 NC noted, saturation at 96%. All safety measures and fall precautions maintained. Call light within reach. Will continue to monitor.
[2016-11-22 20:00] VITALS: BP 143/54
[2016-11-22] MEDS ORDERED: VANCOMYCIN IV 1,500 MG in IV DEXTROSE 5% 500 ML IV ONE (21:00)
[2016-11-22] MEDS: ATORVASTATIN 40 MG TABLET PO SCH (21:31)
[2016-11-22] MEDS ORDERED: LIDOCAINE HCL 1% 20 ML VIAL IJ ONE (22:15)
--- NOTE | 2016-11-22 23:30 | NUR ---
Received new order from Dr. Webber about Bone Marrow Biopsy tomorrow 11/23/16 at 0600. Obtained consent and patient signed. Pt alert and oriented x 4. Will continue to monitor.
[2016-11-23] MEDS: LEVOFLOXACIN 750MG/D5W 750 MG in PREMIXED 1 EACH IV SCH (04:57)
[2016-11-23] MEDS ORDERED: LEVOFLOXACIN 750MG/D5W 0 ML IV ONE (04:59)
[2016-11-23 05:19] VITALS: BP 141/54
[2016-11-23] MEDS: PANTOPRAZOLE SODIUM 40 MG TABLET.DR PO SCH ×2 (06:24→08:58)
[2016-11-23] MEDS: PIPERACILLIN/TAZOBACTAM/D5W 2.25 G in PREMIXED 1 EACH IV SCH ×3 (06:24→22:00)
--- NOTE | 2016-11-23 07:15 | NUR ---
Pt slept well throughout the evening. No complaints of pain or discomfort. No acute distress noted. IV patent and intact. Continuing 3L O2 with saturation at 97%. All safety measures and fall precautions maintained. Call light within reach.
--- NOTE | 2016-11-23 07:20 | NUR ---
RECEIVED REPORT FROM SPA CONSULTANT NURSE, PT ASLEEP, RESP EVEN/UNLABORED, NO S/S OF PAIN, WILL CONT TO MONITOR.
[2016-11-23] MEDS: ALBUTEROL SULFATE 2.5 MG/3 ML NEBU NEB SCH ×3 (07:29→19:31)
[2016-11-23] MEDS: IPRATROPIUM BROMIDE 0.5 MG/2.5 ML NEBU NEB SCH ×3 (07:29→19:31)
[2016-11-23] MEDS: CYANOCOBALAMIN 1,000 MCG TABLET PO SCH (08:57)
[2016-11-23] MEDS: ASPIRIN EC 81 MG TABLET.DR PO SCH (08:58)
[2016-11-23] MEDS: CARVEDILOL 6.25 MG TABLET PO SCH ×2 (08:58→18:00)
[2016-11-23] MEDS: CLOPIDOGREL 75 MG TABLET PO SCH (08:58)
[2016-11-23] MEDS: SANTYL OINTMENT TOP SCH (08:59)
[2016-11-23] MEDS: MINERAL OIL/PETROLATUM,WHITE 57 GM TUBE TOP SCH (08:59)
--- NOTE | 2016-11-23 09:00 | NUR ---
PT HAD A BONE MARROW DONE BY DR. LARA, I HELPED DOCTOR WITH PROCEDURE, NO S/S OF EXTENSIVE BLEEDING. ALL SPECIMENS SENT TO LAB.
[2016-11-23 09:25] LABS: URIC ACID 6.3 mg/dL (3.5-7.2)
[2016-11-23 10:03] LABS: THYROID STIMULATING HORMONE 1.772 mIU/mL (0.358-3.740)
[2016-11-23 10:21] LABS: BASOPHILS # (AUTO) 0.1 K/uL (0.0-8.0); EOSINOPHILS # (AUTO) 0.2 K/uL (0.0-0.7); MONOCYTES # (AUTO) 1.3 K/uL (2.0-10.0)
[2016-11-23 10:27] LABS: BASOPHILS % (AUTO) 1.4 % (0.0-2.0); EOSINOPHILS % (AUTO) 2.1 % (0.0-7.0); LYMPHOCYTES # (AUTO) 1.3 K/uL (20.0-40.0); LYMPHOCYTES % (AUTO) 11.7 % (20.5-51.5); MEAN CORPUSCULAR HEMOGLOBIN 30.5 uug (23.8-33.4); MEAN CORPUSCULAR HGB CONC 34 g/dL (32.5-36.3); MEAN CORPUSCULAR VOLUME 90.2 fL (73.0-96.2); MONOCYTES % (AUTO) 11.3 % (0.0-11.0); NEUTROPHILS # (AUTO) 8.1 K/uL (1.8-8.9); NEUTROPHILS % (AUTO) 73.5 % (38.5-71.5); PLATELET COUNT (AUTO) 56 K/uL (152-348)
[2016-11-23 10:31] LABS: HEMATOCRIT 20.8 % (36.7-47.1)
[2016-11-23 10:37] LABS: BAND % (MANUAL) 3 % (0-10); EOSINOPHILS % (MANUAL) 2 % (0-8); LYMPHOCYTES % (MANUAL) 12 % (20-40); MONOCYTES % (MANUAL) 7 % (2-10); MYELOCYTES % 1 % (0-0); NEUTROPHILS % (MANUAL) 75 % (42-75)
--- NOTE | 2016-11-23 10:39 | NUR ---
CALLED DR AMISHA GERONIMO PTS H AND H 7.0, 20.8, EXCHANGE SAID WILL TELL DOCTOR TO CALL ME.
[2016-11-23 12:02] VITALS: BP 128/47
--- NOTE | 2016-11-23 14:09 | NUR ---
PT HAD A LARGE DARK BROWN BM, STOOL COLLECTED OF OB
[2016-11-23 15:38] VITALS: BP 156/48
--- NOTE | 2016-11-23 16:10 | NUR ---
PAGED DR LION TO INFORM HIM OF PTS H AND H, 7.0 20.8
--- NOTE | 2016-11-23 16:34 | NUR ---
DR LION CALLED BACK AND INFORMED ME HE WAS AWARE OF PT'S H AND H AND THAT A CHARGE WEIGHER WAS WORKING ON IT AND HE HAD A BONE BIOPSY DONE.
--- NOTE | 2016-11-23 16:41 | NUR ---
CLINICAL PHARMACY NOTE:VANCOMYCIN DOSING Subjective: To continue vancomycin dosing on 86 y/o male for pneumonia Objective: height 5'9'' weight 185 lbs Temp 98.4 BUN 39 (11/22) Scr 1.8 (11/22) WBC 11 Random pending today at 1800 Assessment/Plan Due to age and renal function, will dose by fall off level for now. vancomycin 1500mg ivpb given yesterday at 2100. Next random level ordered for tonight at 1800. Will check level and re-dose as appropriate. Will continue to monitor
--- NOTE | 2016-11-23 19:30 | NUR ---
RECEIVED SHIFT REPORT FROM PREVIOUS SHIFT NURSE. PATIENT AO x4. STABLE CONDITION. VSS. PATIENT DOES NOT COMPLAIN OF ANY PAIN EXPERIENCED. NO SIGNS/SYMPTOMS OF DISTRESS. SAFETY AND COMFORT PROVIDED TO PATIENT.
[2016-11-23 19:57] LABS: *OCCULT BLOOD STOOL NEGATIVE (NEGATIVE)
[2016-11-23] MEDS: ATORVASTATIN 40 MG TABLET PO SCH (21:19)
[2016-11-23] MEDS: DOXYCYCLINE HYCLATE 100 MG TABLET PO SCH (21:19)
[2016-11-24] MEDS: IV 1/2NS 1000 ML 1,000 ML IV PRN ×2 (01:01→16:43)
--- NOTE | 2016-11-24 02:17 | NUR ---
AWARE OF PATIENT'S H & H. PREVIOUS SHIFT NURSE SAID DOCTOR WILL NOT TRANSFUSE BLOOD BECAUSE IT WILL NOT BE EFFECTIVE ENOUGH TO INCREASE H & H LEVELS DUE TO PATIENT'S BONE MARROW PROBLEM.
[2016-11-24 05:06] LABS: IMMUNOGLOBULIN A, SERUM 209 mg/dL (61-437); IMMUNOGLOBULIN M, SERUM 211 mg/dL (15-143)
[2016-11-24] MEDS: PIPERACILLIN/TAZOBACTAM/D5W 2.25 G in PREMIXED 1 EACH IV SCH ×2 (06:11→15:50)
[2016-11-24] MEDS: IPRATROPIUM BROMIDE 0.5 MG/2.5 ML NEBU NEB SCH ×3 (07:07→19:09)
[2016-11-24] MEDS: ALBUTEROL SULFATE 2.5 MG/3 ML NEBU NEB SCH ×3 (07:07→19:10)
[2016-11-24 08:06] LABS: *IMMUNOGLOBULIN G, SERUM 716 mg/dL (700-1600)
[2016-11-24] MEDS: ASPIRIN EC 81 MG TABLET.DR PO SCH (08:51)
[2016-11-24] MEDS: CYANOCOBALAMIN 1,000 MCG TABLET PO SCH (08:51)
[2016-11-24] MEDS: DOXYCYCLINE HYCLATE 100 MG TABLET PO SCH ×2 (08:51→21:09)
[2016-11-24] MEDS: CLOPIDOGREL 75 MG TABLET PO SCH (08:51)
[2016-11-24] MEDS: SANTYL OINTMENT TOP SCH (08:52)
[2016-11-24] MEDS: CARVEDILOL 6.25 MG TABLET PO SCH ×2 (08:58→18:33)
[2016-11-24] MEDS: MINERAL OIL/PETROLATUM,WHITE 57 GM TUBE TOP SCH (09:33)
[2016-11-24 11:10] VITALS: BP 151/53
[2016-11-24] MEDS ORDERED: DOXY100T2 PO (13:51)
[2016-11-24] MEDS ORDERED: LEVO500T90 PO (13:51)
[2016-11-24] MEDS ORDERED: ACET325S8 TOP (13:51)
[2016-11-24 15:06] VITALS: BP 146/55
--- NOTE | 2016-11-24 16:01 | NUR ---
Patient notified of discharge. She will be picking up patient at 8:30 tomorrow morning. Her name is Daysi and her number is [phone]. Patient already has home health set up with [facility]. No need to arrange. Patient also aware of discharge plan. Will let the nurse know.
[2016-11-24 20:00] VITALS: BP 144/55
--- NOTE | 2016-11-24 20:00 | NUR ---
Pt a/o x 4 supine with HOB 30 degrees. No s/s of acute distress at this time. Pt on oxygen 2L/min via n/c. Denies any pain at this time. Continue with standby assistance. Pt aware of discharge tomorrow am. Call light placed within reach and 2 side rails up.
[2016-11-24] MEDS: ATORVASTATIN 40 MG TABLET PO SCH (21:09)
--- NOTE | 2016-11-25 00:35 | NUR ---
Pt requested to keep iV on hep lock at this time. No reaction to current antibiotic doxycycline therapy at this time.
[2016-11-25 01:22] LABS: HAPTOGLOBIN 207 mg/dL (34-200)
[2016-11-25] MEDS: LEVOFLOXACIN 750MG/D5W 750 MG in PREMIXED 1 EACH IV SCH (04:50)
[2016-11-25 06:00] VITALS: BP 147/60
[2016-11-25 06:46] LABS: BASOPHILS % (AUTO) 0.1 % (0.0-2.0); EOSINOPHILS # (AUTO) 0.3 K/uL (0.0-0.7); EOSINOPHILS % (AUTO) 3.8 % (0.0-7.0); LYMPHOCYTES # (AUTO) 1.6 K/UL (0.8-4.8); LYMPHOCYTES % (AUTO) 24.2 % (20.5-51.5); MEAN CORPUSCULAR HGB CONC 33 g/dL (32.0-37.0); MEAN CORPUSCULAR VOLUME 90.5 FL (82.0-92.0); MONOCYTES # (AUTO) 0.7 K/UL (0.1-1.30); MONOCYTES % (AUTO) 11.2 % (0.0-11.0); NEUTROPHILS # (AUTO) 4.1 K/UL (1.8-8.9); NEUTROPHILS % (AUTO) 60.7 % (38.5-71.5); PLATELET COUNT (AUTO) 53 K/UL (150-450); WHITE BLOOD COUNT (AUTO) 6.7 K/UL (4.0-11.2)
[2016-11-25] MEDS: PANTOPRAZOLE SODIUM 40 MG TABLET.DR PO SCH (06:49)
[2016-11-25 06:52] LABS: CARBON DIOXIDE 24 mmol/L (21-32); CHLORIDE 112 mmol/L (98-107); CREATININE 1.4 mg/dL (0.6-1.3); GLUCOSE 105 mg/dL (74-106); MAGNESIUM 1.7 mg/dL (1.8-2.4); PHOSPHOROUS 3.5 mg/dL (2.5-4.9); POTASSIUM 4.2 mmol/L (3.5-5.1); UREA NITROGEN, BLOOD 24 mg/dL (7-18)
[2016-11-25 07:21] LABS: HEMATOCRIT 21.1 % (40-50)
[2016-11-25 07:22] LABS: RED BLOOD CELL COUNT(AUTO) 2.33 MIL/UL (4.7-6.1)
[2016-11-25] MEDS: ALBUTEROL SULFATE 2.5 MG/3 ML NEBU NEB SCH (07:23)
[2016-11-25] MEDS: IPRATROPIUM BROMIDE 0.5 MG/2.5 ML NEBU NEB SCH (07:23)
--- NOTE | 2016-11-25 07:26 | NUR ---
Critical lab value 7.0 Hct 21.1 RBC 2.33. Noted and carried out. made aware.
--- NOTE | 2016-11-25 08:00 | NUR ---
Awake, alert, oriented x 3 , forgetful. IVF infusing
[2016-11-25 08:19] VITALS: BP 162/54
[2016-11-25] MEDS: CARVEDILOL 6.25 MG TABLET PO SCH (08:19)
[2016-11-25] MEDS: DOXYCYCLINE HYCLATE 100 MG TABLET PO SCH (08:20)
[2016-11-25] MEDS: CLOPIDOGREL 75 MG TABLET PO SCH (08:20)
[2016-11-25] MEDS: CYANOCOBALAMIN 1,000 MCG TABLET PO SCH (08:20)
[2016-11-25] MEDS: ASPIRIN EC 81 MG TABLET.DR PO SCH (08:20)
[2016-11-25] MEDS: SANTYL OINTMENT TOP SCH (08:21)
[2016-11-25] MEDS: MINERAL OIL/PETROLATUM,WHITE 57 GM TUBE TOP SCH (08:22)
--- NOTE | 2016-11-25 09:09 | NUR ---
Spoke to regarding home health needs. Patient has home health in place already with [facility]. Everything is in place and set up for when patient returns home.
--- NOTE | 2016-11-25 09:30 | NUR ---
With discharge order to home. Saline lock removed. Prescription and DC instruction given to patient and , verbalized understanding. Went home per wheelchair, accompanied by , in fair condition, no tin distress, afebrile
[2016-11-25 10:22] LABS: EOSINOPHILS % (MANUAL) 5 % (0-8); LYMPHOCYTES % (MANUAL) 18 % (20-40); MONOCYTES % (MANUAL) 14 % (2-10); NEUTROPHILS % (MANUAL) 63 % (42-75)
[2016-11-26] MEDS ORDERED: diphenhydrAMINE 50 MG/1 ML VIAL ONE (01:07)
[2016-11-27 12:08] LABS: *HEMOGLOBIN A 98.6 % (94.0-98.0); *HEMOGLOBIN A2 1.4 % (0.7-3.1)
--- NOTE | 2016-11-30 12:16 | NUR ---
ADDENDUM 11/25/16899 Patient anxious to go home, calling about garbage pick up worker. Refused photo taking, wound clean and dry. Will prepare for discharge
== END 2016-11-25 09:45 | disposition home or self-care (01) | DRG 871 ==
LOC: ER 03:44 → TELE 04:15 → MED 11-22 13:48
PROVIDERS: ADMIT Internal Medicine; ATTEND Internal Medicine
DX: A41.9 Sepsis, unspecified organism (principal); J96.21 Acute and chronic respiratory failure with hypoxia; D61.818 Other pancytopenia; E44.0 Moderate protein-calorie malnutrition; J15.9 Unspecified bacterial pneumonia; G92 Toxic encephalopathy; D69.6 Thrombocytopenia, unspecified; N17.9 Acute kidney failure, unspecified; E87.2 Acidosis; J96.22 Acute and chronic respiratory failure with hypercapnia; I13.0 Hypertensive heart and chronic kidney disease with heart failure and stage 1 through stage 4 chronic kidney disease, or unspecified chronic kidney disease; L03.116 Cellulitis of left lower limb; I50.9 Heart failure, unspecified; N18.3 Chronic kidney disease, stage 3 (moderate); D63.8 Anemia in other chronic diseases classified elsewhere; Z79.899 Other long term (current) drug therapy; Z87.891 Personal history of nicotine dependence; I25.10 Atherosclerotic heart disease of native coronary artery without angina pectoris; I25.2 Old myocardial infarction; Z98.61 Coronary angioplasty status; N40.0 Benign prostatic hyperplasia without lower urinary tract symptoms; M19.90 Unspecified osteoarthritis, unspecified site; Z68.23 Body mass index [BMI] 23.0-23.9, adult; L97.529 Non-pressure chronic ulcer of other part of left foot with unspecified severity; I73.9 Peripheral vascular disease, unspecified; Z90.49 Acquired absence of other specified parts of digestive tract; D50.0 Iron deficiency anemia secondary to blood loss (chronic); R65.20 Severe sepsis without septic shock
CPT/HCPCS: 36415; 36600; 70030-TC; 71010; 76700; 82747; 82784; 83010; 83021; 83550; 83605; 83615; 83735; 84100; 84153; 84443; 84550; 85014; 85025; 85651; 85660; 85730; 86038; 86334; 87040; 87070; 87086; 87400; 93005; 94640; 94664; A4663; J1200; J1956; J2543; J3370; J3490; J3590; J7060

== ENCOUNTER 2017-07-23 19:18 | Emergency (ER) | payer MEDICARE, BC ==
[~2017-07-23] VITALS: Ht 182.9 cm; Wt 66.4 kg
[~2017-07-23 19:18] MED LIST changes: +ACET325S8 TOP; +DOXY100T2 PO; +LEVO500T90 PO; -[UNRECOGNIZED DRUG - OTHER] PO
--- NOTE | 2017-07-23 20:08 | NUR ---
ERICKA WELCH AT BEDSIDE FOR MSE.
--- NOTE | 2017-07-23 21:15 | NUR ---
Patient discharged to home in stable conditon. Written and verbal after care instructions given. Patient verbalizes understanding of instructions. Pt ambulated out of ER in steady gait accompanied by . All belongings with pt. VSS. No acute distress.
[2017-07-23 21:17] VITALS: BP 119/50
== END 2017-07-23 21:22 | disposition home or self-care (01) ==
LOC: ER 19:24
DX: L97.819 Non-pressure chronic ulcer of other part of right lower leg with unspecified severity (principal); Z48.01 Encounter for change or removal of surgical wound dressing; I11.0 Hypertensive heart disease with heart failure; I50.9 Heart failure, unspecified; I25.10 Atherosclerotic heart disease of native coronary artery without angina pectoris; Z79.2 Long term (current) use of antibiotics; Z79.899 Other long term (current) drug therapy; Z79.82 Long term (current) use of aspirin
CPT/HCPCS: 99282; A4217; A4663